=== PATIENT | female | born 1985 | race Two or more races ===

== ENCOUNTER 2023-08-25 20:12 | Emergency (ER) | payer MEDICAID, OTHER ==
[~2023-08-25] VITALS: Ht 175.3 cm; Wt 136.2 kg
[2023-08-25] MEDS ORDERED: FAMO20TA10 PO (22:24)
[2023-08-25] MEDS ORDERED: PRED20TA2 PO (22:24)
[2023-08-25] MEDS ORDERED: HYDR25CA PO (22:24)
[2023-08-25] MEDS: diphenhdrAMINE HCL 50 MG/1 ML VL IM ONE (23:37)
[2023-08-25] MEDS: DexAMETHasone SOD PHOS 10MG/1ML VIAL INJ IM ONE (23:38)
[2023-08-25] MEDS: FAMOTIDINE 20 MG TAB PO ONE (23:39)
[2023-08-26] MEDS: diphenhdrAMINE HCL 50 MG/1 ML VL IM ONE (00:59)
[2023-08-26] MEDS: methylPREDNISolone SOD SUCC 125 MG/2 ML VL IM ONE (01:00)
[2023-08-26 02:15] VITALS: BP 112/78; PULSE 78; RESP 18; TEMP 98; O2SAT 99
== END 2023-08-26 02:15 | disposition home or self-care (01) ==
LOC: ER 20:12
DX: L50.0 Allergic urticaria (principal)
CPT/HCPCS: 96372; 99284; J1100; J1200; J2919

== ENCOUNTER 2024-03-04 07:31 | Day surgery (SDC) | payer MEDICAID ==
[2024-03-04] VITALS (13 sets, daily range): BP systolic 107–188; BP diastolic 72–113; PULSE 60–77; RESP 12–21; O2SAT 100
[~2024-03-04] VITALS: Ht 177.8 cm; Wt 136.1 kg
[~2024-03-04 07:31] MED LIST: ASPI-543 PO; DICY20TA PO; HYDR25CA PO
[2024-03-04] MEDS ORDERED: MIDAZOLAM HCL 2MG/2ML 2ml VIAL (1mg/ml) IV ONE (08:30)
[2024-03-04] MEDS ORDERED: ONDANSETRON HCL 4 MG/2 ML VIAL IV ONE (08:30)
[2024-03-04] MEDS ORDERED: LIDOCAINE VISCOUS 2% 15ML UD PO ONE (08:30)
[2024-03-04] MEDS ORDERED: fentaNYL CITRATE 100 MCG/2 ML VL IV ONE (08:30)
[2024-03-04] MEDS ORDERED: ANGIOMAX 250 MG VIAL IV ONE (09:52)
[2024-03-04] MEDS ORDERED: LIDOCAINE 2%HCL (LOCAL ANESTH.) INJ 20ML MDV ONE ×2 (09:53→10:44)
[2024-03-04] MEDS ORDERED: VERAPAMIL 2.5MG/ML INJ 2ML VIAL IV ONE (09:53)
[2024-03-04] MEDS ORDERED: HEPARIN SODIUM (PORCINE) 5000 UNITS/ML 1ML VIAL ONE (09:53)
[2024-03-04] MEDS ORDERED: fentaNYL CITRATE 100 MCG/2 ML VL ONE (09:53)
[2024-03-04] MEDS ORDERED: MIDAZOLAM HCL 2MG/2ML 2ml VIAL (1mg/ml) ONE (09:53)
[2024-03-04] MEDS ORDERED: SODIUM CHL 0.9% 0 ML ONE (09:53)
[2024-03-04] MEDS ORDERED: IODIXANOL 320MG/ML 100ML BTL IV ONE (09:56)
[2024-03-04] MEDS ORDERED: VANCOMYCIN 1GM/200ML PREMIX 200 ML IV ONE (10:56)
--- NOTE | 2024-03-04 12:09 | DVHOP ---
DATE OF SURGERY: 03/04/2024 PROCEDURES PERFORMED: The patient underwent a right and left heart catheterization, bilateral cine coronary angiography, left ventriculography. INDICATION: Tricuspid stenosis. DESCRIPTION OF PROCEDURE: Prior local anesthesia with 2% lidocaine to the right groin and full informed consent obtained, the patient was prepped and draped in the usual fashion. With ultrasound guidance, we placed a 6-Singaporean sheath into the femoral vein and a Mico-Leonid catheter was advanced into the right atrium, right ventricle, pulmonary artery capillary wedge pressure positions. Cardiac outputs were obtained in thermodilution technique in triplicate. We obtained pullback pressures to calculate tricuspid valve area as well. Through the radial artery under ultrasound and fluoroscopic guidance, we gained access to the radial artery. We used a Jose Enrique catheter for evaluation of both right and left coronary ostium and ventriculography without complications. HEMODYNAMICS: Right atrial pressure was approximately 18/16. Right ventricular pressure was 23/6, pulmonary artery pressure was 20/13. Capillary wedge pressure was 9. LV pressure was 136/15, aortic pressure was 139/80. There was a 6 mm gradient across the tricuspid valve with a cardiac output of 4.6 liters per minute. This yields a tricuspid valve area of 1.19 cm2. CORONARY ANATOMY: * The RCA is a large vessel. It is normal in its proximal, mid and distal segments. PDA and posterolateral branches are normal. * Left main is large and normal. * Left anterior descending is a large vessel. It is normal in its proximal, mid and distal segments. * Diagonals and septals are normal. * Circumflex is a large vessel with 2 marginals free of significant disease. Ventriculography in the [place] projection shows an EF of 60%. IMPRESSION: Normal left ventricular end diastolic pressure at rest, normal ejection fraction, normal coronary arteries. Mildly diminished cardiac output. Tricuspid stenosis with a calculated valve area of 1.19 cm2 consistent with significant tricuspid stenosis. RECOMMENDATIONS: We will refer patient for possible tricuspid valve replacement. MD MARINA Burgos/HEMALATHA TID: [id number] RECEIPT: [id number]
--- NOTE | 2024-03-04 12:30 | DVHOP ---
DATE OF SURGERY: 03/04/2024 PROCEDURE PERFORMED: Transesophageal echocardiogram. INDICATION: Tricuspid stenosis. DESCRIPTION OF PROCEDURE: Prior full informed consent obtained, the patient was prepped and draped in the usual fashion and a transesophageal probe was passed without difficulty into the esophagus after conscious sedation given. Standard views obtained. Transgastric views were also obtained. Bubble study was not performed. The patient tolerated the procedure well. No complications. FINDINGS: There was mild left atrial enlargement and right atrial enlargement. Mild concentric LVH. The pulmonic, mitral and aortic appeared to be structurally normal. There is a prosthetic tricuspid valve with diminished excursion of leaflets. Mild calcification of some of the bioprosthetic leaflets as well. Left ventricular systolic function is preserved at 60% with normal RV function. There is mild to moderate tricuspid regurgitation. There is across the valve. Tricuspid valve in diastole suggesting tricuspid valve stenosis; however, not quantified echocardiographically. No pericardial effusion, masses or vegetations. Transgastric views were normal. There was no evidence for intraatrial or intraventricular septal defects. There were no other abnormalities noted within the tricuspid valve. The patient tolerated the procedure well. There were no complications. MD MARINA Burgos/HEMALATHA/ANGIE TID: [id number] RECEIPT: [id number]
== END 2024-03-04 14:25 | disposition home or self-care (01) ==
LOC: CATH 07:31
PROVIDERS: ATTEND Internal Medicine
DX: I07.2 Rheumatic tricuspid stenosis and insufficiency (principal); I34.0 Nonrheumatic mitral (valve) insufficiency
CPT/HCPCS: 81025; 93312; 93460; C1769; C1887; C1894; J1644; J2250; J2405; J3010; J3370; Q9967; 99152; 99153

== ENCOUNTER 2025-02-23 23:39 | Inpatient (IN) | payer MEDICAID ==
[~2025-02-23] VITALS: Ht 175.3 cm; Wt 143.6 kg
--- NOTE | 2025-02-24 00:59 | DVH ---
Right lower extremity venous duplex Clinical History: leg pain Comparison: VAS VENOUS UPPER EXTREM LEFT on DOS: 06/08/24, CV VENOUS DOPPLER UP EXT LT on DOS: 09/03/23 Technique: Duplex Doppler evaluation of the deep venous system of the right lower extremity from the common femoral vein to the popliteal vein including color Doppler and spectral/pulsed waveform analysis was performed. Findings: The common femoral vein demonstrates appropriate compressibility and waveform variability. There is compressibility/patency of the great saphenous vein at the proximal thigh. The femoral vein demonstrates appropriate compressibility and waveform variability. The deep femoral vein demonstrates appropriate compressibility and waveform variability. The popliteal vein demonstrates appropriate compressibility and waveform variability. There is normal compressibility at the tibioperoneal trunk. Impression: 1. No right femoropopliteal venous thrombosis.
[2025-02-24] MEDS: MORPHINE SULFATE 4 MG/ML SYR/VIAL IM ONE (01:10)
--- NOTE | 2025-02-24 01:19 | ED.PDOC ---
Musculoskeletal HPI Comments Patient complaining of right leg/thigh pain that has been going on for two weeks. States over the last two days pain has been getting much more worse. Says she was recently seen at [facility] and diagnosed with possible infection in her pelvic region. States she has been finishing antibiotics, has two days left. States she has seen no significant improvement in her leg pain. Denies any trauma to the area. He states the pain is so intense it is hard for her to walk. Patient also reports history of mitral valve replacement. She was on blood thinners but she recently stopped for approximately three weeks ago. Chief Complaint: Lower Extremity Time Seen by MD: 00:02 Reviewed Notes: Nurses Notes Allergies: Coded Allergies: NO KNOWN ALLERGIES (Unverified , 08/25/23) Home Meds Active Scripts Hydroxyzine Pamoate (Vistaril) 25 Mg Cap, 1 CAP PO Q8HPRN PRN, #20 CAP 1 Refill Needed for itching no driving Prov:MARLOGELYEmelina Q FEED INSPECTION SUPERVISOR 08/25/23 Reported Medications Aspirin (Aspir-Low) 81 Mg Tab, 81 MG PO DAILY for STOP ON 02/29/24, MG 02/28/24 Dicyclomine Hcl (Dicyclomine Hcl) 20 Mg Tab, 20 MG PO TIDBM for diverticulitis, MG 02/28/24 Information Source: Patient Mode of Arrival: EMS Past Medical History PAST MEDICAL HISTORY: Denies Surgical History: Denies all surgeries SMALL BUSINESS BANKING OFFICER History: No Pertinent SMALL BUSINESS BANKING OFFICER History Constitutional: denies: chills, diaphoresis, fatigue, fever, malaise, sweats, weakness, others EENTM: denies: blurred vision, double vision, ear bleeding, ear discharge, ear drainage, ear pain, ear ringing, eye pain, eye redness, hearing loss, mouth pain, mouth swelling, nasal discharge, nose bleeding, nose congestion, nose pain, photophobia, tearing, throat pain, throat swelling, voice changes, others Respiratory: denies: cough, hemoptysis, orthopnea, SOB at rest, shortness of breath, SOB with excertion, stridor, wheezing, others Cardiovascular: denies: chest pain, dizzy spells, diaphoresis, Dyspnea on exertion, edema, irregular heart beat, left arm pain, lightheadedness, palpitations, PND, syncope, others Gastrointestinal: denies: abdomen distended, abdominal pain, blood streaked bowels, constipated, diarrhea, dysphagia, difficulty swallowing, hematemesis, melena, nausea, poor appetite, poor fluid intake, rectal bleeding, rectal pain, vomiting, others Genitourinary: denies: abnormal vagina bleeding, burning, dyspareunia, dysuria, flank pain, frequency, hematuria, incontinence, pain, , vagina discharge, urgency, others Neurological: denies: dizziness, fainting, headache, left sided numbness, left sided weakness, numbness, paresthesia, pre-existing deficit, right sided numbness, right sided weakness, seizure, speech problems, tingling, tremors, weakness, others Musculoskeletal: reports: muscle pain, muscle stiffness; denies: back pain, gout, joint pain, joint swelling, neck pain, others Integumetry: denies: bruises, change in color, change in hair/nails, dryness, laceration, lesions, lumps, rash, wounds, others Physical Exam General Appearance: No Apparent Distress, Normal HEENT: Normal ENT Inspection, Pharynx Normal, TMs Normal Neck: Full Range of Motion, Non-Tender, Normal, Normal Inspection Respiratory: Chest Non-Tender, Lungs Clear, No Accessory Muscle Use, No Respiratory Distress, Normal Breath Sounds Cardiovascular: No Edema, No JVD, No Murmur, No Gallop, Normal Peripheral Pulses, Regular Rate/Rhythm Breast Exam: Deferred Gastrointestinal: No Organomegaly, Non Tender, No Pulsatile Mass, Normal Bowel Sounds, Soft Genitalia: Deferred Pelvic: Deferred Rectal: Deferred Extremities: No calf tenderness, Normal capillary refill, No pedal edema, Tender (Tender to palpation over her lateral right thigh. No obvious swelling no redness. Patient unwilling to bear weight. Distal circulation and motor s kills intact.) Musculoskeletal : Apperance: Normal Neurologic: Alert, roving or yarn color checker II-XII nml as Tested, No Motor Deficits, Normal Affect, Normal Mood, No Sensory Deficits Cerebellar Function: Normal Reflexes: Normal Skin: Dry, Normal Color, Warm Lymphatic: No Adenopathy Was a procedure done? Was a procedure done?: No Differential Diagnosis EXT Differential Diagnosis: Deep Vein Thrombosis, Fracture, Sprain, Dislocation X-Ray, Labs, Meds, VS Vital Signs Date Time Temp Pulse Resp B/P (MAP) Pulse Ox O2 Delivery O2 Flow Rate FiO2 02/23/25 23:54 97.9 61 19 130/84 96 97.9 X-Ray, Labs, Meds, VS Comment Imaging was reviewed by this provider, there is no obvious pathological or acute disease process. Pending radiology review Labs were reviewed by this provider, no abnormalities Vital signs reviewed by this provider, clinically stable Time of 1ST Reevaluation: 01:19 Reevaluation 1ST: Unchanged Patient Education/Counseling: Diagnosis, Treatment, Need For Follow Up (Follow up with PCP next available appointment. Return emergency department if symptoms worsen.) Family Education/Counseling: Diagnosis Departure 1 Departure Time of Disposition: 01:18 Impression: Primary Impression: Right leg pain Disposition: HOME / SELF CARE / HOMELESS Condition: Stable Discharged With: Self Critical Care Note Critical Care Time?: No Stability Stability form required: No Heart Score Heart Score: Heart Score Response (Comments) Value History N/A 0 EKG N/A 0 Age N/A 0 Risk Factors N/A 0 Troponin N/A 0 Total 0 MAGALI MONCADA RECREATION PROFESSOR Feb 24, 2025 01:19
[2025-02-24 02:05] VITALS: PULSE 60; RESP 18; O2SAT 96
[2025-02-24] MEDS: methylPREDNISolone SOD SUCC 125 MG/2 ML VL IM ONE (02:40)
[2025-02-24] MEDS: KETOROLAC TROMETH 30 MG/ML 1ML VIAL IM ONE (02:40)
--- NOTE | 2025-02-24 05:07 | ED.PDOC ---
Departure 1 Departure Time of Disposition: 01:18 Impression: Primary Impression: Right leg pain Additional Impressions: Intractable pain Inability to walk Disposition: ADMITTED INPATIENT Condition: Stable Comments Patient reporting continued severe pain right lower extremity when attempting to stand up and walk prior to discharge. She is unable to ambulate due to pain. Patient admitted to hospitalist service for further treatment, evaluation and monitoring. TK SEGAL MD Feb 24, 2025 05:07
[2025-02-24 05:42] LABS: Hematocrit 37.6 % (36.0-46.0); Hemoglobin 12.3 g/dL (12.2-16.2); Mean Corpuscular Hemoglobin 24.9 pg (28.0-32.0); Mean Corpuscular Volume 76.0 fL (80.0-100.0); Nucleated Red Blood Cells % 0.0 %
[2025-02-24 05:50] LABS: Chloride 107 mmol/L (98-107); Potassium 4.0 mmol/L (3.5-5.1); Sodium 141 mmol/L (136-145)
[2025-02-24 05:51] LABS: Anion Gap 11 (5-15); Calcium 9.5 mg/dL (8.7-10.4); Carbon Dioxide 23 mmol/L (20-31)
[2025-02-24 05:56] LABS: BUN/Creatinine Ratio 7.5 (10.0-20.0)
[2025-02-24 05:57] LABS: Blood Urea Nitrogen 8 mg/dL (9-23); Glucose 117 mg/dL (74-106)
--- NOTE | 2025-02-24 06:01 | DVH ---
EXAM: CT LS SPINE WO CONTRAST HISTORY: Left lower extremity pain, weakness, numbness s/p back inj COMPARISON: CT L-SPINE on DOS: 11/15/24 CTDIvol 38.93 mGy, DLP 1430.21 mGy*cm. TECHNIQUE: Multiple axial CT images of the spine were obtained using bone algorithm. Axial and coronal reformatting was done. Bone and soft tissue windows were reviewed. FINDINGS: No acute fracture or subluxation. Prominent endplate degenerative changes and Schmorl's nodes at L4-L5. Suggestion of moderate to severe canal stenosis at L4- L5 and L5-S1. Colonic diverticulosis. IMPRESSION: No definite CT evidence of acute fracture or dislocation of the bony lumbar spine. Prominent endplate degenerative changes and Schmorl's nodes at L4-L5. Suggestion of moderate to severe canal stenosis at L4-L5 and L5-S1.
[2025-02-24] MEDS: ACETAMINOPHEN 500 MG TAB or CAP PO ONE (06:04)
[2025-02-24] MEDS: MORPHINE SULFATE 4 MG/ML SYR/VIAL ONE (06:04)
[2025-02-24] MEDS: GABAPENTIN 300 MG CAP PO ONE (06:04)
[2025-02-24] MEDS: MORPHINE SULFATE INJ 2 MG/ml SYRG IV ONE (06:08)
[2025-02-24 08:00] VITALS: PULSE 60; RESP 14; O2SAT 98
[2025-02-24] MEDS ORDERED: ONDANSETRON HCL 4 MG/2 ML VIAL IV PRN (08:15)
[2025-02-24] MEDS ORDERED: ACETAMINOPHEN 325 MG TAB PO PRN (08:15)
[2025-02-24] MEDS ORDERED: DOCUSATE SOD 100 MG CAP PO PRN (08:15)
[2025-02-24] MEDS ORDERED: QUET200T45 PO (08:20)
[2025-02-24] MEDS ORDERED: HYDR50TA69 PO (08:20)
--- NOTE | 2025-02-24 09:37 | DVH ---
INDICATION: SOB TECHNIQUE: Frontal view of the chest. COMPARISON: CR CHEST 2 VIEW on DOS: 02/19/24, XR CHEST 1 VIEW on DOS: 09/03/23 FINDINGS: Left-sided pacemaker.. The heart and mediastinal contours are grossly unremarkable. There is no evidence of pleural disease. The lungs are clear. The bony structures of the chest are intact without fracture. IMPRESSION: Mild CHF.
--- NOTE | 2025-02-24 09:47 | DVHHP2 ---
History of Present Illness Reason for Visit: Right leg pain History of Present Illness Luz Deras is a 39-year-old female with past medical history of sepsis, anxiety, depression, tricuspid valve replacement, and pacemaker, who came to the hospital for right leg pain. Patient states her problems started about 2 weeks ago with vaginal pain. She went to [facility] and was told she has a vaginal infection. She was sent home with 3 PO antibiotics. She states she took them for about 1 week then stopped because they weren't helping. She states the pain has been progressing and worsening. The pain now starts at her vagina and shoots down her right leg. Yesterday she fell twice due to her leg giving out form pain, this prompted her to come to the hospital. Cardiovascular: valve insufficiency (Tricuspid valve stenosis), Other (tricuspid valve replacement, and pacemaker) Psych: Anxiety, Depression Smoke: No ALCOHOL: heavy (nightly) Drugs: None Lives: with Family Domestic Violence: Neg Review of Systems Constitutional: Yes: Weakness; No: Fever, Chills, Sweats, Malaise, Other Eyes: No: Pain, Vision change, Conjunctivae inflammation, Eyelid inflammation, Other, Redness ENT: No: Ear pain, Ear discharge, Nose pain, Nose discharge, Nose congestion, Mouth pain, Mouth swelling, Throat pain, Throat swelling, Other Respiratory: No: Cough, Dry, Shortness of breath, SOB with excertion, Wheezing, Hemoptysis, Pleuritic Pain, Sputum, Wheezing, Other Cardiovascular: No: Chest Pain, Palpitations, Orthopnea, Paroxysmal Noc. Dyspnea, Edema, Lt Headedness, Other Gastrointestinal: No: Nausea, Vomiting, Abdominal Pain, Diarrhea, Constipation, Melena, Hematochezia, Other Genitourinary: No Dysuria, No Frequency, No Incontinence, No Hematuria, No Retention, No Other Musculoskeletal: leg pain (right leg pain and weakness); No: other, neck pain, shoulder pain, arm pain, back pain, hand pain, foot pain Skin: No: Rash, Lesions, Jaundice, Bruising, Other Neurological: No: Weakness, Numbness, Incoordination, Change in speech, Confusion, Seizures, Other Allergies: Coded Allergies: NO KNOWN ALLERGIES (Unverified , 02/24/25) Medications Current Medications Medications Dose Ordered Sig/Estevan Route Start Time Stop Time Status Last Admin Dose Admin Acetaminophen/ Hydrocodone Bitart 1 tab Q4HP PRN PO 02/24/25 08:15 UNV Ondansetron HCl 4 mg Q4HP PRN IV 02/24/25 08:15 UNV Docusate Sodium 100 mg BIDPRN PRN PO 02/24/25 08:15 UNV Enoxaparin Sodium 40 mg DAILY SC 02/24/25 10:00 UNV Acetaminophen 650 mg Q6HP PRN PO 02/24/25 08:15 UNV Exam Vital Signs Vital Signs Date Time Temp Pulse Resp B/P (MAP) Pulse Ox O2 Delivery O2 Flow Rate FiO2 02/24/25 06:43 60 14 125/67 (86) 96 02/24/25 06:04 98.4 02/24/25 02:05 Room Air* 0 21 General Appearance: Alert, Oriented X3, Cooperative, mild distress HEENT: Atraumatic, PERRLA, Mucous membr. moist/pink Respiratory: Clear to auscultation, Normal air movement Cardiovascular: Normal S1, Normal S2, No murmurs, Other (Paced) Abdominal: Normal bowel sounds, Soft, No tenderness, No hepatospenomegaly Extremities: No clubbing, No cyanosis, No edema, Normal pulses, No tenderness/swelling Skin: No rashes, No breakdown, No significant lesion Neuro: Normal speech, Other (right leg weakness due to pain, difficulty ambulating) Psych/Mental Status: Mental status NL, Mood NL Labs/Xrays Labs Test 02/24/25 05:16 Range/Units White Blood Count 7.3 4.4-10.8 10^3/uL Red Blood Count 4.95 4.0-5.20 10^6/uL Hemoglobin 12.3 12.2-16.2 g/dL Hematocrit 37.6 36.0-46.0 % Mean Corpuscular Volume 76.0 L 80.0-100.0 fL Mean Corpuscular Hemoglobin 24.9 L 28.0-32.0 pg Mean Corpuscular Hemoglobin Concent 32.8 32.0-36.0 g/dL Red Cell Distribution Width 18.4 H 11.8-14.3 % Platelet Count 219 140-450 10^3/uL Mean Platelet Volume 8.7 6.9-10.8 fL Neutrophils (%) (Auto) 68.1 37.0-80.0 % Lymphocytes (%) (Auto) 28.1 10.0-50.0 % Monocytes (%) (Auto) 2.9 0.0-12.0 % Eosinophils (%) (Auto) 0.6 0.0-7.0 % Basophils (%) (Auto) 0.3 0.0-2.0 % Neutrophils # (Auto) 5.0 1.6-8.6 10 ^3/uL Lymphocytes # (Auto) 2.1 0.4-5.4 10 ^3/uL Monocytes # (Auto) 0.2 0-1.3 10 ^3/uL Eosinophils # (Auto) 0 0-0.8 10 ^3/uL Basophils # (Auto) 0 0-0.2 10 ^3/uL Nucleated Red Blood Cells 0.0 % Sodium Level 141 136-145 mmol/L Potassium Level 4.0 3.5-5.1 mmol/L Chloride Level 107 98-107 mmol/L Carbon Dioxide Level 23 20-31 mmol/L Anion Gap 11 5-15 Blood Urea Nitrogen 8 L 9-23 mg/dL Creatinine 1.06 H 0.550-1.02 mg/dL Glomerular Filtration Rate Calc 68 >90 mL/min BUN/Creatinine Ratio 7.5 L 10.0-20.0 Serum Glucose 117 H 74-106 mg/dL Lactic Acid Level 1.6 0.4-2.0 mmol/L Calcium Level 9.5 8.7-10.4 mg/dL C-Reactive Protein High Sensitivity 0.74 <1.0 mg/dL Right lower extremity venous duplex Findings: The common femoral vein demonstrates appropriate compressibility and waveform variability. There is compressibility/patency of the great saphenous vein at the proximal thigh. The femoral vein demonstrates appropriate compressibility and waveform variability. The deep femoral vein demonstrates appropriate compressibility and waveform variability. The popliteal vein demonstrates appropriate compressibility and waveform variability. There is normal compressibility at the tibioperoneal trunk. Impression: 1. No right femoropopliteal venous thrombosis. EXAM: CT LS SPINE WO CONTRAST FINDINGS: No acute fracture or subluxation. Prominent endplate degenerative changes and Schmorl's nodes at L4-L5. Suggestion of moderate to severe canal stenosis at L4- L5 and L5-S1. Colonic diverticulosis. IMPRESSION: No definite CT evidence of acute fracture or dislocation of the bony lumbar spine. Prominent endplate degenerative changes and Schmorl's nodes at L4-L5. Suggestion of moderate to severe canal stenosis at L4-L5 and L5-S1. SEPSIS Sepsis Screen Date sepsis recognized/suspect: Feb 23, 2025 Time Sepsis recognized/suspect: 2346 Recent Procedure: No On Antibiotic Therapy: Yes Respiratory Rate >20: No Heart Rate >90: No Temp<36 C (96.8 F) or >38.3 C: No SBP <90 or MAP <65 mmHG: No New Acute Mental Status Change: No Is the patient on CPAP, BIPAP,: No Physician Orders Ls Spine Wo Contrast (02/24/25 05:03) Saline Lock (02/24/25 05:03) Admit (02/24/25 08:04) Code Status (02/24/25 08:04) Hydrocodone-Acet 5/325mg Tab ([place] 5/32 (02/24/25 08:15) Ondansetron Hcl (Zofran) (02/24/25 08:15) Docusate Sodium Capsule (Colace Capsule) (02/24/25 08:15) Enoxaparin Sodium (Lovenox) (02/24/25 10:00) Complete Blood Count (02/25/25 04:00) Comprehensive Metabolic Panel (02/25/25 04:00) Cardiac Diet-2gna,Lofat,Lochol (02/24/25 Breakfast) Condition: Serious (02/24/25 08:04) Acetaminophen Tablet (Tylenol Tablet) (02/24/25 08:15) Metronidazole Ivpb Flagyl (02/24/25 14:00) Metronidazole Ivpb Flagyl (02/24/25 08:30) Consultdr. Rm Herrmann(Spine) (02/24/25 08:16) Aspirin Enteric Coated Tablet (Ecotrin E (02/24/25 10:00) (Nf) Dicyclomine Hcl (02/24/25 10:00) Vital Signs Date Time Temp Pulse Resp B/P (MAP) Pulse Ox O2 Delivery O2 Flow Rate FiO2 02/24/25 06:43 60 14 125/67 (86) 96 02/24/25 06:08 60 15 129/60 02/24/25 06:04 98.4 02/24/25 04:00 60 20 129/60 (83) 98 02/24/25 02:05 60 18 96 Room Air* 0 21 02/24/25 02:04 98.3 60 20 127/74 (91) 96 98.3 02/24/25 01:10 60 19 127/74 Laboratory Tests Test 02/24/25 05:16 Lactic Acid Level 1.6 mmol/L (0.4-2.0) White Blood Count 7.3 10^3/uL (4.4-10.8) Medications Medications Dose Ordered Sig/Estevan Route Start Time Stop Time Status Last Admin Dose Admin Acetaminophen 1,000 mg ONCE ONCE PO 02/24/25 05:15 02/24/25 05:16 DC 02/24/25 06:04 1,000 MG Gabapentin 300 mg ONCE ONCE PO 02/24/25 05:15 02/24/25 05:16 LA 02/24/25 06:04 300 MG Ketorolac Tromethamine 30 mg ONCE ONCE IM 02/24/25 01:15 02/24/25 01:16 LA 02/24/25 02:40 30 MG Methylprednisolone Sodium Succinate 125 mg ONCE ONCE IM 02/24/25 01:15 02/24/25 01:16 DC 02/24/25 02:40 125 MG Morphine Sulfate 2 mg ONCE ONCE IV 02/24/25 05:15 02/24/25 05:16 LA 02/24/25 06:08 2 MG Morphine Sulfate 4 mg ONCE ONCE IM 02/24/25 00:15 02/24/25 00:16 LA 02/24/25 01:10 4 MG Assessment/Plan Assessment/Plan Assessment: Intractable pain, Radiculopathy, Schmorl's Nodes, L4-L5 & L5-S1 moderate/severe canal stenosis, Tricuspid valve stenosis, Anxiety, Depression, Plan: Admit to Med-Surg, Spine surgery consult, IV steroids, IV antibiotics, IV hydration, Pain management, Home medications reconciled, Plan discussed with: Patient My Orders Orders - JORGE HOOPERP Procedure Category Date Status Time Admit ADMIT 02/24/25 Transmitted 08:04 Code Status CODE 02/24/25 Transmitted 08:04 Hydrocodone-Acet PHA 02/24/25 Logged 5/325mg Tab ([place] 08:15 Ondansetron Hcl PHA 02/24/25 Logged (Zofran) 08:15 Docusate Sodium PHA 02/24/25 Logged Capsule (Colace 08:15 Enoxaparin Sodium PHA 02/24/25 Logged (Lovenox) 10:00 Complete Blood Count LAB 02/25/25 Verified 04:00 Comprehensive LAB 02/25/25 Verified Metabolic Panel 04:00 Cardiac DIET 02/24/25 Transmitted Diet-2gna,Lofat,Lochol Breakfast Condition: Serious WALLY 02/24/25 In Process 08:04 Acetaminophen Tablet PHA 02/24/25 Logged (Tylenol Tablet) 08:15 Metronidazole Ivpb PHA 02/24/25 Verified Flagyl 14:00 Metronidazole Ivpb PHA 02/24/25 Verified Flagyl 08:30 Consultdr. Rm CONS 02/24/25 Verified [place](Spine) 08:16 Aspirin Enteric PHA 02/24/25 Verified Coated Tablet 10:00 (Nf) Dicyclomine Hcl PHA 02/24/25 Verified 10:00 Date of Service: Feb 24, 2025 Billing Provider: JORGE HOOPER Common Visit Codes: [id number] INP/OBS CARE (MOD) JORGE HOOPER Feb 24, 2025 09:47
[2025-02-24] MEDS: ENOXAPARIN SOD 40 MG/0.4 ML SYRINGE SC SCH (11:36)
[2025-02-24] MEDS: methylPREDNISolone SOD SUCC 40 MG/ML VL IV SCH (11:37)
[2025-02-24] MEDS: ASPirin-EC 81 mg tab PO SCH (11:47)
[2025-02-24] MEDS: MORPHINE SULFATE 4 MG/ML SYR/VIAL IV PRN (16:16)
[2025-02-24 17:07] VITALS: BP 166/93; PULSE 71; RESP 18; TEMP 97.7; O2SAT 99
[2025-02-24 17:08] VITALS: BP 166/93; PULSE 71; RESP 18; TEMP 97.7; O2SAT 99
[2025-02-24] MEDS ORDERED: LACT10SO59 PO (17:37)
[2025-02-24] MEDS ORDERED: CARI1CAP2 PO (17:37)
[2025-02-24] MEDS: HYDROcodone-ACET 5/325MG TAB PO PRN (18:11)
[2025-02-24 21:00] VITALS: BP 132/86; PULSE 63; RESP 17; TEMP 97.8; O2SAT 95
[2025-02-24] MEDS: SODIUM CHLORIDE 0.9% 1,000 ML IV ONE (21:00)
[2025-02-25 01:00] VITALS: BP 134/79; PULSE 59; RESP 18; TEMP 97.9; O2SAT 96
[2025-02-25 05:00] VITALS: BP 125/84; PULSE 66; RESP 17; TEMP 97.7; O2SAT 99
[2025-02-25 05:53] LABS: Hematocrit 36.0 % (36.0-46.0); Hemoglobin 11.6 g/dL (12.2-16.2); Mean Corpuscular Hemoglobin 24.5 pg (28.0-32.0); Mean Corpuscular Volume 75.6 fL (80.0-100.0); Nucleated Red Blood Cells % 0.0 %
[2025-02-25 06:03] LABS: Alanine Aminotransferase 24 U/L (7-40); Albumin 4.3 g/dL (3.2-4.8); Alkaline Phosphatase 72 U/L (46-116); Anion Gap 11 (5-15); BUN/Creatinine Ratio 22.7 (10.0-20.0); Blood Urea Nitrogen 17 mg/dL (9-23); Calcium 9.2 mg/dL (8.7-10.4); Carbon Dioxide 21 mmol/L (20-31); Potassium 4.3 mmol/L (3.5-5.1); Sodium 140 mmol/L (136-145); Total Protein 6.9 g/dL (5.7-8.2)
[2025-02-25 06:04] LABS: Bilirubin, Total 0.7 mg/dL (0.2-1.0)
[2025-02-25 06:11] LABS: Chloride 108 mmol/L (98-107); Glucose 134 mg/dL (74-106)
[2025-02-25 09:00] VITALS: BP 125/75; PULSE 61; RESP 20; TEMP 98; O2SAT 98
[2025-02-25] MEDS: hydrOXYzine 25 MG TAB or CAP PO SCH (10:31)
[2025-02-25] MEDS: GABAPENTIN 300 MG CAP PO SCH (11:54)
[2025-02-25 13:00] VITALS: BP 118/76; PULSE 61; RESP 20; TEMP 98; O2SAT 96
--- NOTE | 2025-02-25 13:18 | DVHPN2 ---
Subjective Still having severe pain Reviewed: H&P Changes from previous H/P or p: No Changes Eyes: No Pain, No Vision change, No Conjunctivae inflammation, No Eyelid inflammation, No Other, No Redness ENT: No Ear pain, No Ear discharge, No Nose pain, No Nose discharge, No Nose congestion, No Mouth pain, No Mouth swelling, No Throat pain, No Throat swelling, No Other Cardiovascular: No Chest Pain, No Palpitations, No Orthopnea, No Paroxysmal Noc. Dyspnea, No Edema, No Lt Headedness, No Other Respiratory: No Cough, No Dry, No Shortness of breath, No SOB with excertion, No Wheezing, No Hemoptysis, No Pleuritic Pain, No Sputum, No Other Gastrointestinal: No Nausea, No Vomiting, No Abdominal Pain, No Diarrhea, No Constipation, No Melena, No Hematochezia, No Other Genitourinary: No Dysuria, No Frequency, No Incontinence, No Hematuria, No Retention, No Other Musculoskeletal: No other, No neck pain, No shoulder pain, No arm pain, No back pain, No hand pain; leg pain (right leg pain and weakness); No foot pain Skin: No Rash, No Lesions, No Jaundice, No Bruising, No Other Objective Vitals Vital Signs Date Time Temp Pulse Resp B/P (MAP) Pulse Ox O2 Delivery O2 Flow Rate FiO2 02/25/25 11:55 62 18 127/70 02/25/25 09:00 98.0 98 98.0 02/25/25 07:54 Room Air* 0 21 Intake/Output Intake and Output 02/25/25 07:00 Intake Total 1050 ml Output Total 1100 ml Balance -50 ml Intake Oral 950 ml IV Total 100 ml Output Urine Total 1100 ml General Appearance: Alert, Oriented X3 HEENT: Atraumatic Lungs: Clear to auscultation Cardiovascular: Regular rate, Normal S1, Normal S2 Abdomen: Normal bowel sounds Medications Current Medications Medications Dose Ordered Sig/Estevan Route Start Time Stop Time Status Last Admin Dose Admin Acetaminophen/ Hydrocodone Bitart 1 tab Q4HP PRN PO 02/24/25 08:15 02/25/25 07:52 1 TAB Ondansetron HCl 4 mg Q4HP PRN IV 02/24/25 08:15 Docusate Sodium 100 mg BIDPRN PRN PO 02/24/25 08:15 Enoxaparin Sodium 40 mg DAILY SC 02/24/25 10:00 02/25/25 10:32 40 MG Acetaminophen 650 mg Q6HP PRN PO 02/24/25 08:15 Aspirin 81 mg DAILY PO 02/24/25 10:00 02/25/25 10:31 81 MG Patient Own Medication 20 mg TIDBM PO 02/24/25 10:00 Hydroxyzine Pamoate 50 mg DAILY PO 02/25/25 10:00 02/25/25 10:31 50 MG Quetiapine Fumarate 200 mg HS PO 02/24/25 22:00 Methylprednisolone Sodium Succinate 40 mg BID IV 02/24/25 10:00 02/25/25 10:32 40 MG Morphine Sulfate 2 mg Q4HPRN PRN IV 02/24/25 08:45 02/25/25 11:55 2 MG Metronidazole 100 ml @ 100 mls/hr Q8HR IV 02/24/25 22:00 02/25/25 06:10 100 MLS/HR Gabapentin 300 mg TID PO 02/25/25 11:00 02/25/25 11:54 300 MG Laboratory Results Laboratory Tests 02/25/25 04:55 Chemistry Test 02/25/25 04:55 Albumin 4.3 g/dL (3.2-4.8) Calcium Level 9.2 mg/dL (8.7-10.4) Total Protein 6.9 g/dL (5.7-8.2) LFT Test 02/25/25 04:55 Alanine Aminotransferase (ALT) 24 U/L (7-40) Alkaline Phosphatase 72 U/L (46-116) Aspartate Amino Transferase (AST) 23 U/L (13-40) Total Bilirubin 0.7 mg/dL (0.2-1.0) Assessment/Plan Assessment/Plan Intractable pain, Radiculopathy, Schmorl's Nodes, L4-L5 & L5-S1 moderate/severe canal stenosis, Tricuspid valve stenosis, Anxiety, Depression, Reviewed CT with no acute process Start gabapentin, lidocaine patch IV steroids PT eval Plan discussed with: Patient My Orders Orders - CORNEL REYNOLDS MD Procedure Category Date Status Time * Wound Consult CONS 02/25/25 Transmitted Gabapentin Capsule PHA 02/25/25 In Process (Neurontin Capsule) 11:00 * Electrical Troubleshooter CONS 02/25/25 Transmitted Consult Date of Service: Feb 25, 2025 Billing Provider: CORNEL REYNOLDS MD Common Visit Codes: [id number] INP/OBS CARE(HIGH) CORNEL REYNOLDS MD Feb 25, 2025 13:18
[2025-02-25 16:38] VITALS: BP 128/71; PULSE 66; RESP 20; TEMP 99.1; O2SAT 97
[2025-02-25 21:00] VITALS: BP 109/69; PULSE 65; RESP 19; TEMP 97.6; O2SAT 98
--- NOTE | 2025-02-25 23:41 | DVHINCON2 ---
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 Concurrently, she is having severe lo back pain radiating down both legs with parasthesias in both legs and patchy numbness in both legs no bowel or bladder incontinence no current f/c/night sweats Allergies and medications Allergies: Coded Allergies: NO KNOWN ALLERGIES (Unverified , 02/24/25) Home Meds Reported Medications Cariprazine HCl (Vraylar) 3 Mg Cap, 6 MG PO DAILY, CAP 02/24/25 Lactulose (Enulose) 10 Gm/15 Ml Maggie, 10 GM PO DAILYP PRN for FOR CONSTIPATION, ML 02/24/25 Quetiapine Fumerate (QUETIAPINE FUMARATE) 200 Mg Tab, 200 MG PO HS, TAB 02/24/25 Hydroxyzine Hcl (Hydroxyzine Hcl) 50 Mg Tab, 1 TAB PO DAILY 02/24/25 Aspirin (Aspir-Low) 81 Mg Tab, 81 MG PO DAILY for STOP ON 02/29/24, MG 02/28/24 Dicyclomine Hcl (Dicyclomine Hcl) 20 Mg Tab, 20 MG PO TIDBM for diverticulitis, MG 02/28/24 Discontinued Scripts Hydroxyzine Pamoate (Vistaril) 25 Mg Cap, 1 CAP PO Q8HPRN PRN, #20 CAP 1 Refill Needed for itching no driving Prov:[employer] 08/25/23 Review of systems Review of Systems: HEENT:Normal, CVS:Normal, RESPIRATORY:Normal, GI:Normal, :Normal, MSK:Abnormal, NEURO:Abnormal Examination Vital signs Vital Signs Date Time Temp Pulse Resp B/P (MAP) Pulse Ox O2 Delivery O2 Flow Rate FiO2 02/25/25 21:00 97.6 65 19 109/69 (82) 98 97.6 02/25/25 20:00 Room Air* 0 21 Medications Current Medications Medications (Trade) Dose Ordered Sig/Estevan Route PRN Reason Start Time Stop Time Status Last Admin Hydroxyzine Pamoate (Vistaril Oral) 50 mg DAILY PO 02/25/25 10:00 02/25/25 10:31 Gabapentin (Neurontin Capsule) 300 mg TID PO 02/25/25:00 02/25/25 21:[address] [address] Ph: [phone] DIAGNOSTIC IMAGING Diagnostic Imaging Report : [id number] Signed PATIENT: NELSON THOMAS ACCT: [id number] UNIT: [id number] : 1985 LOC: ER ROOM / BED: / AGE / SEX: 39 / F ADM STATUS: REG ER SERVICE 0505 ORDERING PHYSICIAN: TK SEGAL MD PROCEDURE(s): LS2CT - LS SPINE WO CONTRAST REASON: Left lower extremity pain, weakness, numbness s/p back inj ORDER NUMBER(s): [id number], ACCESSION NUMBER(s): [id number] EXAM: CT LS SPINE WO CONTRAST HISTORY: Left lower extremity pain, weakness, numbness s/p back inj COMPARISON: CT L-SPINE on DOS: 11/15/24 CTDIvol 38.93 mGy, DLP 1430.21 mGy*cm. TECHNIQUE: Multiple axial CT images of the spine were obtained using bone algorithm. Axial and coronal reformatting was done. Bone and soft tissue windows were reviewed. FINDINGS: No acute fracture or subluxation. Prominent endplate degenerative changes and Schmorl's nodes at L4-L5. Suggestion of moderate to severe canal stenosis at L4- L5 and L5-S1. Colonic diverticulosis. IMPRESSION: No definite CT evidence of acute fracture or dislocation of the bony lumbar spine. Prominent endplate degenerative changes and Schmorl's nodes at L4-L5. Suggestion of moderate to severe canal stenosis at L4-L5 and L5-S1. ATED BY: TROY ASH MD DICTATED DATE/TIME: 02/24/25558 SIGNED BY: TROY ASH MD SIGNED DATE/TIME: 02/24/25558 CC: Labs Test 02/25/25 04:55 02/24/25 19:24 02/24/25 05:16 Range/Units White Blood Count 14.0 #H 4.4-10.8 10^3/uL Red Blood Count 4.76 4.0-5.20 10^6/uL Hemoglobin 11.6 L 12.2-16.2 g/dL Hematocrit 36.0 36.0-46.0 % Mean Corpuscular Volume 75.6 L 80.0-100.0 fL Mean Corpuscular Hemoglobin 24.5 L 28.0-32.0 pg Mean Corpuscular Hemoglobin Concent 32.3 32.0-36.0 g/dL Red Cell Distribution Width 18.3 H 11.8-14.3 % Platelet Count 206 140-450 10^3/uL Mean Platelet Volume 9.7 6.9-10.8 fL Neutrophils (%) (Auto) 91.3 H 37.0-80.0 % Lymphocytes (%) (Auto) 6.6 L 10.0-50.0 % Monocytes (%) (Auto) 1.7 0.0-12.0 % Eosinophils (%) (Auto) 0.0 0.0-7.0 % Basophils (%) (Auto) 0.4 0.0-2.0 % Neutrophils # (Auto) 12.8 H 1.6-8.6 10 ^3/uL Lymphocytes # (Auto) 0.9 0.4-5.4 10 ^3/uL Monocytes # (Auto) 0.2 0-1.3 10 ^3/uL Eosinophils # (Auto) 0 0-0.8 10 ^3/uL Basophils # (Auto) 0 0-0.2 10 ^3/uL Nucleated Red Blood Cells 0.0 % Sodium Level 140 136-145 mmol/L Potassium Level 4.3 3.5-5.1 mmol/L Chloride Level 108 H 98-107 mmol/L Carbon Dioxide Level 21 20-31 mmol/L Anion Gap 11 5-15 Blood Urea Nitrogen 17 9-23 mg/dL Creatinine 0.75 0.550-1.02 mg/dL Glomerular Filtration Rate Calc 103 >90 mL/min BUN/Creatinine Ratio 22.7 H 10.0-20.0 Serum Glucose 134 H 74-106 mg/dL Calcium Level 9.2 8.7-10.4 mg/dL Total Bilirubin 0.7 0.2-1.0 mg/dL Aspartate Amino Transferase (AST) 23 13-40 U/L Alanine Aminotransferase (ALT) 24 7-40 U/L Alkaline Phosphatase 72 46-116 U/L Total Protein 6.9 5.7-8.2 g/dL Albumin 4.3 3.2-4.8 g/dL Lactic Acid Level 1.6 0.4-2.0 mmol/L C-Reactive Protein High Sensitivity 0.74 <1.0 mg/dL Examination: GENERAL:Normal, HEENT:Normal, NECK:Normal, LUNGS:Normal, CVS:Abnormal, ABDOMEN:Abnormal, MSK:Abnormal, SKIN:Normal, NEURO:Abnormal Problem List/Assessment/Plan Problems: (1) Intractable pain Assessment and Plan I would recommend getting an MRI lumbar spine evaluate for the etiology of the sciatica symptoms he is suffering from. Plan discussed with Plan discussed with: Patient CHRISTOPHER ALBA MD Feb 25, 2025 23:41
[2025-02-26 01:00] VITALS: BP 126/90; PULSE 60; RESP 20; TEMP 98.1; O2SAT 97
[2025-02-26 09:00] VITALS: BP 135/83; PULSE 60; RESP 16; TEMP 97.8; O2SAT 100
[2025-02-26 12:40] VITALS: BP 120/80; PULSE 60; RESP 19; TEMP 98.4; O2SAT 98
[2025-02-26 16:52] VITALS: BP 108/72; PULSE 100; RESP 16; TEMP 98.6; O2SAT 94
--- NOTE | 2025-02-26 18:31 | DVHPN2 ---
Subjective Still having severe pain Reviewed: H&P Changes from previous H/P or p: No Changes Eyes: No Pain, No Vision change, No Conjunctivae inflammation, No Eyelid inflammation, No Other, No Redness ENT: No Ear pain, No Ear discharge, No Nose pain, No Nose discharge, No Nose congestion, No Mouth pain, No Mouth swelling, No Throat pain, No Throat swelling, No Other Cardiovascular: No Chest Pain, No Palpitations, No Orthopnea, No Paroxysmal Noc. Dyspnea, No Edema, No Lt Headedness, No Other Respiratory: No Cough, No Dry, No Shortness of breath, No SOB with excertion, No Wheezing, No Hemoptysis, No Pleuritic Pain, No Sputum, No Other Gastrointestinal: No Nausea, No Vomiting, No Abdominal Pain, No Diarrhea, No Constipation, No Melena, No Hematochezia, No Other Genitourinary: No Dysuria, No Frequency, No Incontinence, No Hematuria, No Retention, No Other Musculoskeletal: No other, No neck pain, No shoulder pain, No arm pain, No back pain, No hand pain; leg pain (right leg pain and weakness); No foot pain Skin: No Rash, No Lesions, No Jaundice, No Bruising, No Other Objective Vitals Vital Signs Date Time Temp Pulse Resp B/P (MAP) Pulse Ox O2 Delivery O2 Flow Rate FiO2 02/26/25 16:52 98.6 100 16 108/72 (84) 94 98.6 02/26/25 08:00 Room Air* 0 21 Intake/Output Intake and Output 02/26/25 05:00 Intake Total 1450 ml Balance 1450 ml Intake Oral 1150 ml IV Total 300 ml # Voids 12 # Bowel Movements 1 General Appearance: Alert, Oriented X3 HEENT: Atraumatic Lungs: Clear to auscultation Cardiovascular: Regular rate, Normal S1, Normal S2 Abdomen: Normal bowel sounds Medications Current Medications Medications Dose Ordered Sig/Estevan Route Start Time Stop Time Status Last Admin Dose Admin Acetaminophen/ Hydrocodone Bitart 1 tab Q4HP PRN PO 02/24/25 08:15 02/26/25 16:50 1 TAB Ondansetron HCl 4 mg Q4HP PRN IV 02/24/25 08:15 Docusate Sodium 100 mg BIDPRN PRN PO 02/24/25 08:15 Enoxaparin Sodium 40 mg DAILY SC 02/24/25 10:00 02/26/25 09:05 40 MG Acetaminophen 650 mg Q6HP PRN PO 02/24/25 08:15 Aspirin 81 mg DAILY PO 02/24/25 10:00 02/26/25 08:58 81 MG Patient Own Medication 20 mg TIDBM PO 02/24/25 10:00 Hydroxyzine Pamoate 50 mg DAILY PO 02/25/25 10:00 02/26/25 08:57 50 MG Quetiapine Fumarate 200 mg HS PO 02/24/25 22:00 Methylprednisolone Sodium Succinate 40 mg BID IV 02/24/25 10:00 02/26/25 08:58 40 MG Morphine Sulfate 2 mg Q4HPRN PRN IV 02/24/25 08:45 02/26/25 08:56 2 MG Metronidazole 100 ml @ 100 mls/hr Q8HR IV 02/24/25 22:00 02/26/25 14:10 100 MLS/HR Gabapentin 300 mg TID PO 02/25/25 11:00 02/26/25 14:10 300 MG Laboratory Results Laboratory Tests 02/25/25 04:55 Assessment/Plan Assessment/Plan Intractable pain, Radiculopathy, Schmorl's Nodes, L4-L5 & L5-S1 moderate/severe canal stenosis, Tricuspid valve stenosis, Anxiety, Depression, Reviewed CT with no acute process Ortho recommended MRI Start gabapentin, lidocaine patch IV steroids PT eval Plan discussed with: Patient Date of Service: Feb 26, 2025 Billing Provider: CORNEL REYNOLDS MD Common Visit Codes: [id number] INP/OBS CARE(HIGH) CORNEL REYNOLDS MD Feb 26, 2025 18:30
[2025-02-26 21:00] VITALS: BP 121/81; PULSE 64; RESP 19; TEMP 98.8; O2SAT 97
[2025-02-27] VITALS (7 sets, daily range): BP systolic 108–144; BP diastolic 71–100; PULSE 57–71; RESP 19–20; TEMP 97.8–98.5; O2SAT 93–98
--- NOTE | 2025-02-27 13:41 | DVHPN2 ---
Subjective Still having severe pain Reviewed: H&P Changes from previous H/P or p: No Changes Eyes: No Pain, No Vision change, No Conjunctivae inflammation, No Eyelid inflammation, No Other, No Redness ENT: No Ear pain, No Ear discharge, No Nose pain, No Nose discharge, No Nose congestion, No Mouth pain, No Mouth swelling, No Throat pain, No Throat swelling, No Other Cardiovascular: No Chest Pain, No Palpitations, No Orthopnea, No Paroxysmal Noc. Dyspnea, No Edema, No Lt Headedness, No Other Respiratory: No Cough, No Dry, No Shortness of breath, No SOB with excertion, No Wheezing, No Hemoptysis, No Pleuritic Pain, No Sputum, No Other Gastrointestinal: No Nausea, No Vomiting, No Abdominal Pain, No Diarrhea, No Constipation, No Melena, No Hematochezia, No Other Genitourinary: No Dysuria, No Frequency, No Incontinence, No Hematuria, No Retention, No Other Musculoskeletal: leg pain Skin: No Rash, No Lesions, No Jaundice, No Bruising, No Other Objective Vitals Vital Signs Date Time Temp Pulse Resp B/P (MAP) Pulse Ox O2 Delivery O2 Flow Rate FiO2 02/27/25 12:35 98.5 61 20 128/77 (94) 95 98.5 02/27/25 08:00 Room Air* 0 21 Intake/Output Intake and Output 02/27/25 07:00 Intake Total 1250 ml Output Total 450 ml Balance 800 ml Intake Oral 1150 ml IV Total 100 ml Output Urine Total 450 ml # Voids 7 General Appearance: Alert, Oriented X3 HEENT: Atraumatic Lungs: Clear to auscultation Cardiovascular: Regular rate, Normal S1, Normal S2 Abdomen: Normal bowel sounds Medications Current Medications Medications Dose Ordered Sig/Estevan Route Start Time Stop Time Status Last Admin Dose Admin Acetaminophen/ Hydrocodone Bitart 1 tab Q4HP PRN PO 02/24/25 08:15 02/27/25 06:47 1 TAB Ondansetron HCl 4 mg Q4HP PRN IV 02/24/25 08:15 Docusate Sodium 100 mg BIDPRN PRN PO 02/24/25 08:15 Enoxaparin Sodium 40 mg DAILY SC 02/24/25 10:00 02/27/25 09:52 40 MG Acetaminophen 650 mg Q6HP PRN PO 02/24/25 08:15 Aspirin 81 mg DAILY PO 02/24/25 10:00 02/27/25 09:55 81 MG Patient Own Medication 20 mg TIDBM PO 02/24/25 10:00 02/27/25 09:55 20 MG Hydroxyzine Pamoate 50 mg DAILY PO 02/25/25 10:00 02/27/25 09:54 50 MG Quetiapine Fumarate 200 mg HS PO 02/24/25 22:00 Methylprednisolone Sodium Succinate 40 mg BID IV 02/24/25 10:00 02/27/25 09:55 40 MG Morphine Sulfate 2 mg Q4HPRN PRN IV 02/24/25 08:45 02/27/25 10:09 2 MG Metronidazole 100 ml @ 100 mls/hr Q8HR IV 02/24/25 22:00 02/27/25 05:26 100 MLS/HR Gabapentin 300 mg TID PO 02/25/25 11:00 02/27/25 05:26 300 MG Amitriptyline HCl 10 mg HS PO 02/27/25 22:00 Laboratory Results Laboratory Tests 02/25/25 04:55 Assessment/Plan Assessment/Plan Intractable pain, Radiculopathy, Schmorl's Nodes, L4-L5 & L5-S1 moderate/severe canal stenosis, Tricuspid valve stenosis, Anxiety, Depression, Reviewed CT with no acute process Ortho recommended MRI and pending due to pacemaker Start gabapentin, lidocaine patch Added amytriptyline today IV steroids PT eval Plan discussed with: Patient My Orders Orders - CORNEL REYNOLDS MD Procedure Category Date Status Time Amitriptyline Hcl PHA 02/27/25 In Process Tablet (Elavil Tablet) 22:00 Date of Service: Feb 27, 2025 Billing Provider: CORNEL REYNOLDS MD Common Visit Codes: [id number] INP/OBS CARE(HIGH) CORNEL REYNOLDS MD Feb 27, 2025 13:40
[2025-02-27] MEDS: AMITRIPTYLINE HCL 10 MG TAB PO SCH (21:20)
[2025-02-28 01:00] VITALS: BP 136/89; PULSE 59; RESP 18; TEMP 98; O2SAT 97
[2025-02-28 08:52] VITALS: BP 120/69; PULSE 59; RESP 20; TEMP 97.6; O2SAT 96
[2025-02-28 12:45] VITALS: BP 117/72; PULSE 61; RESP 20; TEMP 98.3; O2SAT 94
--- NOTE | 2025-02-28 13:24 | DVHPN2 ---
Subjective Pain is better today Reviewed: H&P Changes from previous H/P or p: No Changes Eyes: No Pain, No Vision change, No Conjunctivae inflammation, No Eyelid inflammation, No Other, No Redness ENT: No Ear pain, No Ear discharge, No Nose pain, No Nose discharge, No Nose congestion, No Mouth pain, No Mouth swelling, No Throat pain, No Throat swelling, No Other Cardiovascular: No Chest Pain, No Palpitations, No Orthopnea, No Paroxysmal Noc. Dyspnea, No Edema, No Lt Headedness, No Other Respiratory: No Cough, No Dry, No Shortness of breath, No SOB with excertion, No Wheezing, No Hemoptysis, No Pleuritic Pain, No Sputum, No Other Gastrointestinal: No Nausea, No Vomiting, No Abdominal Pain, No Diarrhea, No Constipation, No Melena, No Hematochezia, No Other Genitourinary: No Dysuria, No Frequency, No Incontinence, No Hematuria, No Retention, No Other Musculoskeletal: leg pain Skin: No Rash, No Lesions, No Jaundice, No Bruising, No Other Objective Vitals Vital Signs Date Time Temp Pulse Resp B/P (MAP) Pulse Ox O2 Delivery O2 Flow Rate FiO2 02/28/25 12:45 98.3 61 20 117/72 (87) 94 98.3 02/28/25 08:00 Room Air* 0 21 Intake/Output Intake and Output 02/28/25 07:00 Intake Total 1710 ml Balance 1710 ml Intake Oral 1710 ml # Voids 5 # Bowel Movements 2 General Appearance: Alert, Oriented X3 HEENT: Atraumatic Lungs: Clear to auscultation Cardiovascular: Regular rate, Normal S1, Normal S2 Abdomen: Normal bowel sounds Medications Current Medications Medications Dose Ordered Sig/Estevan Route Start Time Stop Time Status Last Admin Dose Admin Acetaminophen/ Hydrocodone Bitart 1 tab Q4HP PRN PO 02/24/25 08:15 02/28/25 12:53 1 TAB Ondansetron HCl 4 mg Q4HP PRN IV 02/24/25 08:15 Docusate Sodium 100 mg BIDPRN PRN PO 02/24/25 08:15 Enoxaparin Sodium 40 mg DAILY SC 02/24/25 10:00 02/28/25 09:58 40 MG Acetaminophen 650 mg Q6HP PRN PO 02/24/25 08:15 Aspirin 81 mg DAILY PO 02/24/25 10:00 02/28/25 09:58 81 MG Patient Own Medication 20 mg TIDBM PO 02/24/25 10:00 02/28/25 09:58 20 MG Hydroxyzine Pamoate 50 mg DAILY PO 02/25/25 10:00 02/28/25 09:58 50 MG Quetiapine Fumarate 200 mg HS PO 02/24/25 22:00 Methylprednisolone Sodium Succinate 40 mg BID IV 02/24/25 10:00 02/28/25 09:57 40 MG Morphine Sulfate 2 mg Q4HPRN PRN IV 02/24/25 08:45 02/28/25 10:00 2 MG Metronidazole 100 ml @ 100 mls/hr Q8HR IV 02/24/25 22:00 02/28/25 05:37 100 MLS/HR Gabapentin 300 mg TID PO 02/25/25 11:00 02/28/25 05:37 300 MG Amitriptyline HCl 10 mg HS PO 02/27/25 22:00 02/27/25 21:20 10 MG Laboratory Results Laboratory Tests 02/25/25 04:55 Assessment/Plan Assessment/Plan Intractable pain, Radiculopathy, Schmorl's Nodes, L4-L5 & L5-S1 moderate/severe canal stenosis, Tricuspid valve stenosis, Anxiety, Depression, Reviewed CT with no acute process Ortho recommended MRI and pending due to pacemaker pending imaging Start gabapentin, lidocaine patch Added amytriptyline today IV steroids PT eval Dispo: Pending MRI and PT eval Plan discussed with: Patient Date of Service: Feb 28, 2025 Billing Provider: CORNEL REYNOLDS MD Common Visit Codes: [id number] INP/OBS CARE(HIGH) CORNEL REYNOLDS MD Feb 28, 2025 13:24
[2025-02-28 17:24] VITALS: BP 103/67; PULSE 72; RESP 20; TEMP 98.5; O2SAT 95
[2025-02-28 21:00] VITALS: BP 133/76; PULSE 70; RESP 19; TEMP 98.2; O2SAT 96
--- NOTE | 2025-02-28 22:27 | DVHINCON2 ---
Date of service: Feb 28, 2025 Referring Physician Kimber Reason for Consultation Pacemaker History of Present Illness This is a 39-year-old female with past medical history of sepsis, anxiety, depression, tricuspid valve replacement, and pacemaker who presented to the ED on 02/24 with a complaint of right leg pain. Patient states her problems started about 2 weeks ago with vaginal pain. She went to [facility] and was told she has a vaginal infection. She was sent home with 3 PO antibiotics. She states she took them for about 1 week then stopped because they weren't helping. She states the pain has been progressing and worsening. The pain now starts at her vagina and shoots down her right leg. On 02/23 she fell twice due to her leg giving out form pain. RLE Venous duplex: no right femoropopliteal venous thrombosis.Patient was admitted to the hospital. I am asked to consult on this patient. Family History: Diabetes mellitus FH: cancer 19 CHILD, Onset:Unknown Hypertension G8 MOTHER, Onset:Unknown Allergies: Coded Allergies: NO KNOWN ALLERGIES (Unverified , 02/24/25) Home Meds Reported Medications Cariprazine HCl (Vraylar) 3 Mg Cap, 6 MG PO DAILY, CAP 02/24/25 Lactulose (Enulose) 10 Gm/15 Ml Maggie, 10 GM PO DAILYP PRN for FOR CONSTIPATION, ML 02/24/25 Quetiapine Fumerate (QUETIAPINE FUMARATE) 200 Mg Tab, 200 MG PO HS, TAB 02/24/25 Hydroxyzine Hcl (Hydroxyzine Hcl) 50 Mg Tab, 1 TAB PO DAILY 02/24/25 Aspirin (Aspir-Low) 81 Mg Tab, 81 MG PO DAILY for STOP ON 02/29/24, MG 02/28/24 Dicyclomine Hcl (Dicyclomine Hcl) 20 Mg Tab, 20 MG PO TIDBM for diverticulitis, MG 02/28/24 Discontinued Scripts Hydroxyzine Pamoate (Vistaril) 25 Mg Cap, 1 CAP PO Q8HPRN PRN, #20 CAP 1 Refill Needed for itching no driving 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 Current Medications Current Medications Medications (Trade) Dose Ordered Sig/Estevan Route PRN Reason Start Time Stop Time Status Last Admin Amitriptyline HCl (Elavil Tablet) 10 mg HS PO 02/27/25 22:00 02/28/25 21:24 Review of Systems Constitutional: denies: chills, diaphoresis, fatigue, fever, malaise, sweats, weakness, others EENTM: denies: blurred vision, double vision, ear bleeding, ear discharge, ear drainage, ear pain, ear ringing, eye pain, eye redness, hearing loss, mouth pa in, mouth swelling, nasal discharge, nose bleeding, nose congestion, nose pain, photophobia, tearing, throat pain, throat swelling, voice changes, others Respiratory: denies: cough, hemoptysis, orthopnea, SOB at rest, shortness of breath, SOB with excertion, stridor, wheezing, others Cardiovascular: denies: chest pain, dizzy spells, diaphoresis, Dyspnea on exertion, edema, irregular heart beat, left arm pain, lightheadedness, palpitations, PND, syncope, others Gastrointestinal: denies: abdomen distended, abdominal pain, blood streaked bowels, constipated, diarrhea, dysphagia, difficulty swallowing, hematemesis, melena, nausea, poor appetite, poor fluid intake, rectal bleeding, rectal pain, vomiting, others Genitourinary: denies: abnormal vagina bleeding, burning, dyspareunia, dysuria, flank pain, frequency, hematuria, incontinence, pain, , vagina discharge, urgency, others Neurological: denies: dizziness, fainting, headache, left sided numbness, left sided weakness, numbness, paresthesia, pre-existing deficit, right sided numbness, right sided weakness, seizure, speech problems, tingling, tremors, weakness, others Musculoskeletal: reports: muscle pain, muscle stiffness; denies: back pain, gout, joint pain, joint swelling, neck pain, others Integumetry: denies: bruises, change in color, change in hair/nails, dryness, laceration, lesions, lumps, rash, wounds, others Vital Signs Vital Signs Date Time Temp Pulse Resp B/P (MAP) Pulse Ox O2 Delivery O2 Flow Rate FiO2 02/28/25 17:24 98.5 72 20 103/67 (79) 95 98.5 02/28/25 08:00 Room Air* 0 21 Physical Exam GENERAL: Alert and oriented x 3. No acute distress. EYES: PERRL, EOMI. Anicteric. HENT: Moist mucous membranes. LUNGS: Clear to auscultation bilaterally. CARDIOVASCULAR: Regular rate and rhythm. ABDOMEN: Soft, nontender and nondistended. EXTREMITIES: No edema. NEUROLOGIC: No focal neurological deficits. SKIN: Warm, dry. Labs/Diagnostic Data Labs Test 02/25/25 04:55 02/24/25 19:24 02/24/25 05:16 Range/Units White Blood Count 14.0 #H 4.4-10.8 10^3/uL Red Blood Count 4.76 4.0-5.20 10^6/uL Hemoglobin 11.6 L 12.2-16.2 g/dL Hematocrit 36.0 36.0-46.0 % Mean Corpuscular Volume 75.6 L 80.0-100.0 fL Mean Corpuscular Hemoglobin 24.5 L 28.0-32.0 pg Mean Corpuscular Hemoglobin Concent 32.3 32.0-36.0 g/dL Red Cell Distribution Width 18.3 H 11.8-14.3 % Platelet Count 206 140-450 10^3/uL Mean Platelet Volume 9.7 6.9-10.8 fL Neutrophils (%) (Auto) 91.3 H 37.0-80.0 % Lymphocytes (%) (Auto) 6.6 L 10.0-50.0 % Monocytes (%) (Auto) 1.7 0.0-12.0 % Eosinophils (%) (Auto) 0.0 0.0-7.0 % Basophils (%) (Auto) 0.4 0.0-2.0 % Neutrophils # (Auto) 12.8 H 1.6-8.6 10 ^3/uL Lymphocytes # (Auto) 0.9 0.4-5.4 10 ^3/uL Monocytes # (Auto) 0.2 0-1.3 10 ^3/uL Eosinophils # (Auto) 0 0-0.8 10 ^3/uL Basophils # (Auto) 0 0-0.2 10 ^3/uL Nucleated Red Blood Cells 0.0 % Sodium Level 140 136-145 mmol/L Potassium Level 4.3 3.5-5.1 mmol/L Chloride Level 108 H 98-107 mmol/L Carbon Dioxide Level 21 20-31 mmol/L Anion Gap 11 5-15 Blood Urea Nitrogen 17 9-23 mg/dL Creatinine 0.75 0.550-1.02 mg/dL Glomerular Filtration Rate Calc 103 >90 mL/min BUN/Creatinine Ratio 22.7 H 10.0-20.0 Serum Glucose 134 H 74-106 mg/dL Calcium Level 9.2 8.7-10.4 mg/dL Total Bilirubin 0.7 0.2-1.0 mg/dL Aspartate Amino Transferase (AST) 23 13-40 U/L Alanine Aminotransferase (ALT) 24 7-40 U/L Alkaline Phosphatase 72 46-116 U/L Total Protein 6.9 5.7-8.2 g/dL Albumin 4.3 3.2-4.8 g/dL Hepatitis C Antibody Negative Negative Lactic Acid Level 1.6 0.4-2.0 mmol/L C-Reactive Protein High Sensitivity 0.74 <1.0 mg/dL Assessment Intractable pain. Radiculopathy. Schmorl's Nodes. L4-L5 & L5-S1 moderate/severe canal stenosis. Tricuspid valve stenosis. Anxiety. Depression. History of PPM. Plan/Recommendation I agree with your ongoing assessment and care of plan. Morphine and [place] for pain management. Amitriptyline. Aspirin. DVT prophylactics. Additional plan as per the hospital course. A total of 45 minutes was spent reviewing the patient record, examining the patient, making a diagnostic and therapeutic plan, discussing this plan with medical personnel, following up on diagnostic studies and following the patient for clinical stability excluding any and all procedures. At least 50% of this time was spent in direct, [id number] contact. Plan discussed with: Patient IRENE SIMEON MD Feb 28, 2025 22:07
[2025-03-01 01:00] VITALS: BP 114/72; PULSE 86; RESP 17; TEMP 98; O2SAT 100
[2025-03-01 05:00] VITALS: BP 112/72; PULSE 54; RESP 19; TEMP 98.1; O2SAT 97
[2025-03-01 08:48] VITALS: BP 123/81; PULSE 60; RESP 16; TEMP 97.9; O2SAT 98
[2025-03-01 12:38] VITALS: BP 124/82; PULSE 64; RESP 16; TEMP 98.8; O2SAT 92
--- NOTE | 2025-03-01 16:16 | DVHPN2 ---
Subjective I am assuming the care of the patient from today onwards. Patient is complaining of low back pain radiating to the lower extremity on the right side. Reviewed: H&P Changes from previous H/P or p: No Changes Eyes: No Pain, No Vision change, No Conjunctivae inflammation, No Eyelid inflammation, No Other, No Redness ENT: No Ear pain, No Ear discharge, No Nose pain, No Nose discharge, No Nose congestion, No Mouth pain, No Mouth swelling, No Throat pain, No Throat swelling, No Other Cardiovascular: No Chest Pain, No Palpitations, No Orthopnea, No Paroxysmal Noc. Dyspnea, No Edema, No Lt Headedness, No Other Respiratory: No Cough, No Dry, No Shortness of breath, No SOB with excertion, No Wheezing, No Hemoptysis, No Pleuritic Pain, No Sputum, No Other Gastrointestinal: No Nausea, No Vomiting, No Abdominal Pain, No Diarrhea, No Constipation, No Melena, No Hematochezia, No Other Genitourinary: No Dysuria, No Frequency, No Incontinence, No Hematuria, No Retention, No Other Musculoskeletal: leg pain Skin: No Rash, No Lesions, No Jaundice, No Bruising, No Other Objective Vitals Vital Signs Date Time Temp Pulse Resp B/P (MAP) Pulse Ox O2 Delivery O2 Flow Rate FiO2 03/01/25 12:38 98.8 64 16 124/82 (96) 92 98.8 03/01/25 08:00 Room Air* 0 21 Intake/Output Intake and Output 03/01/25 07:00 Intake Total 1480 ml Balance 1480 ml Intake Oral 1280 ml IV Total 200 ml # Voids 5 Exam HEENT pupils are reactive Neck is supple CV is S1-S2 regular rate and rhythm Diminished breath sounds bases GI positive bowel sound Extremity no edema 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 General Appearance: Alert, Oriented X3 HEENT: Atraumatic Lungs: Clear to auscultation Cardiovascular: Regular rate, Normal S1, Normal S2 Abdomen: Normal bowel sounds Medications Current Medications Medications Dose Ordered Sig/Estevan Route Start Time Stop Time Status Last Admin Dose Admin Acetaminophen/ Hydrocodone Bitart 1 tab Q4HP PRN PO 02/24/25 08:15 03/01/25 14:26 1 TAB Ondansetron HCl 4 mg Q4HP PRN IV 02/24/25 08:15 Docusate Sodium 100 mg BIDPRN PRN PO 02/24/25 08:15 Enoxaparin Sodium 40 mg DAILY SC 02/24/25 10:00 03/01/25 09:25 40 MG Acetaminophen 650 mg Q6HP PRN PO 02/24/25 08:15 Aspirin 81 mg DAILY PO 02/24/25 10:00 03/01/25 09:26 81 MG Patient Own Medication 20 mg TIDBM PO 02/24/25 10:00 03/01/25 15:01 20 MG Hydroxyzine Pamoate 50 mg DAILY PO 02/25/25 10:00 03/01/25 09:26 50 MG Quetiapine Fumarate 200 mg HS PO 02/24/25 22:00 Methylprednisolone Sodium Succinate 40 mg BID IV 02/24/25 10:00 03/01/25 09:25 40 MG Morphine Sulfate 2 mg Q4HPRN PRN IV 02/24/25 08:45 03/01/25 09:25 2 MG Metronidazole 100 ml @ 100 mls/hr Q8HR IV 02/24/25 22:00 03/01/25 14:32 100 MLS/HR Gabapentin 300 mg TID PO 02/25/25 11:00 03/01/25 14:59 300 MG Amitriptyline HCl 10 mg HS PO 02/27/25 22:00 02/28/25 21:24 10 MG Laboratory Results Laboratory Tests 02/25/25 04:55 Assessment/Plan Assessment/Plan 39-year-old female with a known history of morbid obesity classIII, status post pacemaker is here for low back pain radiating to the right lower extremity found to have 1. Intractable low back pain 2. Lumbar radiculopathy 3. Lumbar spine stenosis at L4-5 S1 4. Morbid obesity classIII 5. Status post pacemaker -MRI of the lumbar spine, pain management, DVT GI prophylaxis, spine surgery consultation. Plan discussed with: Patient Problem List: (1) Right leg pain (2) Intractable pain Date of Service: Mar 01, 2025 Billing Provider: GIOVANNI LABOY MD Common Visit Codes: [id number] INP/OBS CARE(HIGH) GIOVANNI LABOY MD Mar 01, 2025 16:16
[2025-03-01 16:58] VITALS: BP 113/75; PULSE 72; RESP 16; TEMP 98; O2SAT 97
[2025-03-01 21:00] VITALS: BP 135/88; PULSE 66; RESP 18; TEMP 98; O2SAT 96
--- NOTE | 2025-03-01 23:56 | DVHPN2 ---
Progress Note - Dictate Date Seen: Mar 01, 2025 Medical Necessity Reason Pt with a Central, PICC or Fol: No Subjective Patient was seen and evaluated in follow up. Patient is complaining of low back pain radiating to the lower extremity on the right side.Patient is stable on room air. vital signs Vital Sign Date Time Temp Pulse Resp B/P (MAP) Pulse Ox O2 Delivery O2 Flow Rate FiO2 03/01/25 22:23 60 18 126/71 03/01/25 21:00 98.0 96 98.0 03/01/25 20:00 Room Air* 0 21 Total Intake and Output 02/28/25 02/28/25 03/01/25 15:00 23:00 07:00 Intake Total 800 ml 680 ml Balance 800 ml 680 ml medications Current Medications Medications Dose Ordered Sig/Estevan Route Start Time Stop Time Status Last Admin Dose Admin Acetaminophen/ Hydrocodone Bitart 1 tab Q4HP PRN PO 02/24/25 08:15 03/01/25 18:37 1 TAB Ondansetron HCl 4 mg Q4HP PRN IV 02/24/25 08:15 Docusate Sodium 100 mg BIDPRN PRN PO 02/24/25 08:15 Enoxaparin Sodium 40 mg DAILY SC 02/24/25 10:00 03/01/25 09:25 40 MG Acetaminophen 650 mg Q6HP PRN PO 02/24/25 08:15 Aspirin 81 mg DAILY PO 02/24/25 10:00 03/01/25 09:26 81 MG Patient Own Medication 20 mg TIDBM PO 02/24/25 10:00 03/01/25 20:00 20 MG Hydroxyzine Pamoate 50 mg DAILY PO 02/25/25 10:00 03/01/25 09:26 50 MG Quetiapine Fumarate 200 mg HS PO 02/24/25 22:00 Methylprednisolone Sodium Succinate 40 mg BID IV 02/24/25 10:00 03/01/25 21:37 40 MG Morphine Sulfate 2 mg Q4HPRN PRN IV 02/24/25 08:45 03/01/25 21:53 2 MG Metronidazole 100 ml @ 100 mls/hr Q8HR IV 02/24/25 22:00 03/01/25 21:35 100 MLS/HR Gabapentin 300 mg TID PO 02/25/25 11:00 03/01/25 21:36 300 MG Amitriptyline HCl 10 mg HS PO 02/27/25 22:00 03/01/25 21:36 10 MG objective GENERAL: Alert and oriented x 3. No acute distress. EYES: PERRL, EOMI. Anicteric. HENT: Moist mucous membranes. LUNGS: Clear to auscultation bilaterally. CARDIOVASCULAR: Regular rate and rhythm. ABDOMEN: Soft, nontender and nondistended. EXTREMITIES: No edema. NEUROLOGIC: No focal neurological deficits. SKIN: Warm, dry. laboratory and microbiology Laboratory Tests 02/25/25 04:55 Test 02/25/25 04:55 Range/Units Serum Glucose 134 H 74-106 mg/dL Problem List Intractable pain. Radiculopathy. Schmorl's Nodes. L4-L5 & L5-S1 moderate/severe canal stenosis. Tricuspid valve stenosis. Anxiety. Depression. History of PPM. Assessment/Plan Continued all current supportive medical care. Morphine and [place] for pain management. Amitriptyline. Aspirin. DVT prophylactics. Additional plan as per the hospital course. Plan discussed with: Patient IRENE SIMEON MD Mar 01, 2025 23:54
[2025-03-02 01:00] VITALS: BP 113/76; PULSE 61; RESP 18; TEMP 97.9; O2SAT 97
[2025-03-02 05:00] VITALS: BP 144/96; PULSE 60; RESP 18; TEMP 97.8; O2SAT 99
[2025-03-02 09:00] VITALS: BP 130/86; PULSE 59; RESP 17; TEMP 97.8; O2SAT 100
[2025-03-02 13:00] VITALS: BP 126/84; PULSE 68; RESP 15; TEMP 98.9; O2SAT 95
--- NOTE | 2025-03-02 14:17 | DVHPN2 ---
Subjective Patient is complaining of low back pain radiating to the lower extremity on the right side. MRI lumbar spine is pending. Reviewed: H&P Changes from previous H/P or p: No Changes Eyes: No Pain, No Vision change, No Conjunctivae inflammation, No Eyelid inflammation, No Other, No Redness ENT: No Ear pain, No Ear discharge, No Nose pain, No Nose discharge, No Nose congestion, No Mouth pain, No Mouth swelling, No Throat pain, No Throat swelling, No Other Cardiovascular: No Chest Pain, No Palpitations, No Orthopnea, No Paroxysmal Noc. Dyspnea, No Edema, No Lt Headedness, No Other Respiratory: No Cough, No Dry, No Shortness of breath, No SOB with excertion, No Wheezing, No Hemoptysis, No Pleuritic Pain, No Sputum, No Other Gastrointestinal: No Nausea, No Vomiting, No Abdominal Pain, No Diarrhea, No Constipation, No Melena, No Hematochezia, No Other Genitourinary: No Dysuria, No Frequency, No Incontinence, No Hematuria, No Retention, No Other Musculoskeletal: leg pain Skin: No Rash, No Lesions, No Jaundice, No Bruising, No Other Objective Vitals Vital Signs Date Time Temp Pulse Resp B/P (MAP) Pulse Ox O2 Delivery O2 Flow Rate FiO2 03/02/25 10:35 68 16 123/72 03/02/25 09:00 97.8 100 97.8 03/02/25 08:00 Room Air* 0 21 Intake/Output Intake and Output 03/02/25 07:00 Intake Total 2226 ml Balance 2226 ml Intake Oral 1926 ml IV Total 300 ml # Voids 5 # Bowel Movements 1 Exam HEENT pupils are reactive Neck is supple CV is S1-S2 regular rate and rhythm Diminished breath sounds bases GI positive bowel sound 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 General Appearance: Alert, Oriented X3 HEENT: Atraumatic Lungs: Clear to auscultation Cardiovascular: Regular rate, Normal S1, Normal S2 Abdomen: Normal bowel sounds Medications Current Medications Medications Dose Ordered Sig/Estevan Route Start Time Stop Time Status Last Admin Dose Admin Acetaminophen/ Hydrocodone Bitart 1 tab Q4HP PRN PO 02/24/25 08:15 03/02/25 13:06 1 TAB Ondansetron HCl 4 mg Q4HP PRN IV 02/24/25 08:15 Docusate Sodium 100 mg BIDPRN PRN PO 02/24/25 08:15 Enoxaparin Sodium 40 mg DAILY SC 02/24/25 10:00 03/02/25 10:04 40 MG Acetaminophen 650 mg Q6HP PRN PO 02/24/25 08:15 Aspirin 81 mg DAILY PO 02/24/25 10:00 03/02/25 10:03 81 MG Patient Own Medication 20 mg TIDBM PO 02/24/25 10:00 03/02/25 10:04 20 MG Hydroxyzine Pamoate 50 mg DAILY PO 02/25/25 10:00 03/02/25 10:03 50 MG Quetiapine Fumarate 200 mg HS PO 02/24/25 22:00 Methylprednisolone Sodium Succinate 40 mg BID IV 02/24/25 10:00 03/02/25 10:03 40 MG Morphine Sulfate 2 mg Q4HPRN PRN IV 02/24/25 08:45 03/02/25 10:05 2 MG Metronidazole 100 ml @ 100 mls/hr Q8HR IV 02/24/25 22:00 03/02/25 05:06 100 MLS/HR Gabapentin 300 mg TID PO 02/25/25 11:00 03/02/25 05:08 300 MG Amitriptyline HCl 10 mg HS PO 02/27/25 22:00 03/01/25 21:36 10 MG Laboratory Results Laboratory Tests 02/25/25 04:55 Assessment/Plan Assessment/Plan 39-year-old female with a known history of morbid obesity classIII, status post pacemaker is here for low back pain radiating to the right lower extremity found to have 1. Intractable low back pain 2. Lumbar radiculopathy 3. Lumbar spine stenosis at L4-5 S1 4. Morbid obesity classIII 5. Status post pacemaker -MRI of the lumbar spine, pain management, DVT GI prophylaxis, spine surgery consultation. Plan discussed with: Patient Date of Service: Mar 02, 2025 Billing Provider: GIOVANNI LABOY MD Common Visit Codes: [id number] INP/OBS CARE(HIGH) GIOVANNI LABOY MD Mar 02, 2025 14:17
[2025-03-02 17:00] VITALS: BP 115/68; PULSE 73; RESP 16; TEMP 99.2; O2SAT 97
[2025-03-02 21:00] VITALS: BP 104/72; PULSE 66; RESP 18; TEMP 97.5; O2SAT 97
--- NOTE | 2025-03-02 23:40 | DVHPN2 ---
Progress Note - Dictate Date Seen: Mar 02, 2025 Medical Necessity Reason Pt with a Central, PICC or Fol: No Subjective Patient was seen and evaluated in follow up. Patient is complaining of low back pain radiating to the lower extremity on the right side. Pending confirmation from [facility] for MRI compatibility. vital signs Vital Sign Date Time Temp Pulse Resp B/P (MAP) Pulse Ox O2 Delivery O2 Flow Rate FiO2 03/02/25 10:35 68 16 123/72 03/02/25 09:00 97.8 100 97.8 03/02/25 08:00 Room Air* 0 21 Total Intake and Output 03/01/25 03/01/25 03/02/25 15:00 23:00 07:00 Intake Total 100 ml 1400 ml 726 ml Balance 100 ml 1400 ml 726 ml medications Current Medications Medications Dose Ordered Sig/Estevan Route Start Time Stop Time Status Last Admin Dose Admin Acetaminophen/ Hydrocodone Bitart 1 tab Q4HP PRN PO 02/24/25 08:15 03/02/25 13:06 1 TAB Ondansetron HCl 4 mg Q4HP PRN IV 02/24/25 08:15 Docusate Sodium 100 mg BIDPRN PRN PO 02/24/25 08:15 Enoxaparin Sodium 40 mg DAILY SC 02/24/25 10:00 03/02/25 10:04 40 MG Acetaminophen 650 mg Q6HP PRN PO 02/24/25 08:15 Aspirin 81 mg DAILY PO 02/24/25 10:00 03/02/25 10:03 81 MG Patient Own Medication 20 mg TIDBM PO 02/24/25 10:00 03/02/25 10:04 20 MG Hydroxyzine Pamoate 50 mg DAILY PO 02/25/25 10:00 03/02/25 10:03 50 MG Quetiapine Fumarate 200 mg HS PO 02/24/25 22:00 Methylprednisolone Sodium Succinate 40 mg BID IV 02/24/25 10:00 03/02/25 10:03 40 MG Morphine Sulfate 2 mg Q4HPRN PRN IV 02/24/25 08:45 03/02/25 10:05 2 MG Metronidazole 100 ml @ 100 mls/hr Q8HR IV 02/24/25 22:00 03/02/25 05:06 100 MLS/HR Gabapentin 300 mg TID PO 02/25/25 11:00 03/02/25 05:08 300 MG Amitriptyline HCl 10 mg HS PO 02/27/25 22:00 03/01/25 21:36 10 MG objective GENERAL: Alert and oriented x 3. No acute distress. EYES: PERRL, EOMI. Anicteric. HENT: Moist mucous membranes. LUNGS: Clear to auscultation bilaterally. CARDIOVASCULAR: Regular rate and rhythm. ABDOMEN: Soft, nontender and nondistended. EXTREMITIES: No edema. NEUROLOGIC: No focal neurological deficits. SKIN: Warm, dry. laboratory and microbiology Laboratory Tests 02/25/25 04:55 Test 02/25/25 04:55 Range/Units Serum Glucose 134 H 74-106 mg/dL Problem List Intractable pain. Radiculopathy. Schmorl's Nodes. L4-L5 & L5-S1 moderate/severe canal stenosis. Tricuspid valve stenosis. Anxiety. Depression. History of PPM. Assessment/Plan Continued all current supportive medical care. Morphine and [place] for pain management. Aspirin. DVT prophylactics. IV Solu-Medrol. Additional plan as per the hospital course. Dietary Evaluation Review Comments: Assessment: Patient with obesity and uncontrolled DM; requires weight reduction and cardiac dietary management. Intervention: Accommodate patients food preferences while maintaining therapeutic goals. Reinforce Cardiac Low Carbohydrate Diet and CCHO principles. Educated patient on using non-salt herbal seasonings to enhance flavor without increasing sodium intake. Encouraged adherence to weight-reducing strategies within cardiac diet guidelines. Plan: Continue current cardiac low-CHO diet. Monitor weight trends, blood glucose, and dietary compliance. Reassess nutrition needs and patient understanding at follow-up. Expected Outcomes/Goals: Gradual wt loss Plan discussed with: Patient IRENE SIMEON MD Mar 02, 2025 14:23
[2025-03-03] VITALS (7 sets, daily range): BP systolic 117–144; BP diastolic 72–89; PULSE 60–79; RESP 16–20; TEMP 97.9–98.9; O2SAT 95–99
[2025-03-03 13:51] LABS: Chloride 100 mmol/L (98-107); Potassium 4.3 mmol/L (3.5-5.1)
[2025-03-03 13:53] LABS: Anion Gap 8 (5-15); Calcium 9.2 mg/dL (8.7-10.4); Carbon Dioxide 27 mmol/L (20-31)
[2025-03-03 13:55] LABS: Nucleated Red Blood Cells % 0.1 %
[2025-03-03 13:57] LABS: Hematocrit 42.6 % (36.0-46.0); Hemoglobin 14.1 g/dL (12.2-16.2); Mean Corpuscular Hemoglobin 24.5 pg (28.0-32.0); Mean Corpuscular Volume 74.0 fL (80.0-100.0)
[2025-03-03 13:58] LABS: BUN/Creatinine Ratio 14.5 (10.0-20.0); Blood Urea Nitrogen 12 mg/dL (9-23)
[2025-03-03 14:09] LABS: Glucose 193 mg/dL (74-106); Sodium 135 mmol/L (136-145)
[2025-03-03] MEDS: OXYCODONE W/ ACETAMINOPHEN 5/325MG TABLET PO ONE (14:14)
--- NOTE | 2025-03-03 16:13 | DVHPN2 ---
Subjective Patient is complaining of low back pain radiating to the lower extremity on the right side. MRI lumbar spine is pending. Reviewed: H&P Changes from previous H/P or p: No Changes Eyes: No Pain, No Vision change, No Conjunctivae inflammation, No Eyelid inflammation, No Other, No Redness ENT: No Ear pain, No Ear discharge, No Nose pain, No Nose discharge, No Nose congestion, No Mouth pain, No Mouth swelling, No Throat pain, No Throat swelling, No Other Cardiovascular: No Chest Pain, No Palpitations, No Orthopnea, No Paroxysmal Noc. Dyspnea, No Edema, No Lt Headedness, No Other Respiratory: No Cough, No Dry, No Shortness of breath, No SOB with excertion, No Wheezing, No Hemoptysis, No Pleuritic Pain, No Sputum, No Other Gastrointestinal: No Nausea, No Vomiting, No Abdominal Pain, No Diarrhea, No Constipation, No Melena, No Hematochezia, No Other Genitourinary: No Dysuria, No Frequency, No Incontinence, No Hematuria, No Retention, No Other Musculoskeletal: leg pain Skin: No Rash, No Lesions, No Jaundice, No Bruising, No Other Objective Vitals Vital Signs Date Time Temp Pulse Resp B/P (MAP) Pulse Ox O2 Delivery O2 Flow Rate FiO2 03/03/25 12:30 98.3 74 19 144/84 (104) 96 98.3 03/03/25 08:00 Room Air* 0 21 Intake/Output Intake and Output 03/03/25 07:00 Intake Total 1575 ml Output Total 2 ml Balance 1573 ml Intake Oral 1475 ml IV Total 100 ml Output Urine Total 2 ml # Voids 4 # Bowel Movements 1 Exam HEENT pupils are reactive Neck is supple CV is S1-S2 regular rate and rhythm Diminished breath sounds bases GI positive bowel sound 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 General Appearance: Alert, Oriented X3 HEENT: Atraumatic Lungs: Clear to auscultation Cardiovascular: Regular rate, Normal S1, Normal S2 Abdomen: Normal bowel sounds Medications Current Medications Medications Dose Ordered Sig/Estevan Route Start Time Stop Time Status Last Admin Dose Admin Acetaminophen/ Hydrocodone Bitart 1 tab Q4HP PRN PO 02/24/25 08:15 03/03/25 10:13 1 TAB Ondansetron HCl 4 mg Q4HP PRN IV 02/24/25 08:15 Docusate Sodium 100 mg BIDPRN PRN PO 02/24/25 08:15 Enoxaparin Sodium 40 mg DAILY SC 02/24/25 10:00 03/03/25 10:10 40 MG Acetaminophen 650 mg Q6HP PRN PO 02/24/25 08:15 Aspirin 81 mg DAILY PO 02/24/25 10:00 03/03/25 10:11 81 MG Patient Own Medication 20 mg TIDBM PO 02/24/25 10:00 03/03/25 10:13 20 MG Hydroxyzine Pamoate 50 mg DAILY PO 02/25/25 10:00 03/03/25 10:11 50 MG Quetiapine Fumarate 200 mg HS PO 02/24/25 22:00 Methylprednisolone Sodium Succinate 40 mg BID IV 02/24/25 10:00 03/03/25 10:11 40 MG Morphine Sulfate 2 mg Q4HPRN PRN IV 02/24/25 08:45 03/03/25 01:10 2 MG Metronidazole 100 ml @ 100 mls/hr Q8HR IV 02/24/25 22:00 03/03/25 14:13 100 MLS/HR Gabapentin 300 mg TID PO 02/25/25 11:00 03/03/25 14:14 300 MG Amitriptyline HCl 10 mg HS PO 02/27/25 22:00 03/02/25 22:00 10 MG Laboratory Results Laboratory Tests 03/03/25 13:03 Chemistry Test 03/03/25 13:03 Calcium Level 9.2 mg/dL (8.7-10.4) Assessment/Plan Assessment/Plan 39-year-old female with a known history of morbid obesity classIII, status post pacemaker is here for low back pain radiating to the right lower extremity found to have 1. Intractable low back pain 2. Lumbar radiculopathy 3. Lumbar spine stenosis at L4-5 S1 4. Morbid obesity classIII 5. Status post pacemaker 6. Recent diagnosis of cervicitis, on antibiotics -MRI of the lumbar spine has been canceled, pain management, DVT GI prophylaxis, spine surgery consultation. Plan discussed with: Patient My Orders Orders - GIOVANNI LABOY MD Procedure Category Date Status Time * Retirement Benefits Specialist CONS 03/03/25 Transmitted Consult Date of Service: Mar 03, 2025 Billing Provider: GIOVANNI LABOY MD Common Visit Codes: [id number] INP/OBS CARE(HIGH) GIOVANNI LABOY MD Mar 03, 2025 16:13
--- NOTE | 2025-03-03 16:30 | DVHPN2 ---
Progress Note - Dictate Date Seen: Mar 03, 2025 Medical Necessity Reason Pt with a Central, PICC or Fol: No Subjective Patient was seen and evaluated in follow up. No overnight events. Patient is complaining of severe lower back pain with radiation to her RLE. MRI lumbar spine is pending. vital signs Vital Sign Date Time Temp Pulse Resp B/P (MAP) Pulse Ox O2 Delivery O2 Flow Rate FiO2 03/03/25 12:30 98.3 74 19 144/84 (104) 96 98.3 03/03/25 08:00 Room Air* 0 21 Total Intake and Output 03/02/25 03/02/25 03/03/25 15:00 23:00 07:00 Intake Total 1025 ml 550 ml Output Total 2 ml Balance 1025 ml 548 ml medications Current Medications Medications Dose Ordered Sig/Estevan Route Start Time Stop Time Status Last Admin Dose Admin Acetaminophen/ Hydrocodone Bitart 1 tab Q4HP PRN PO 02/24/25 08:15 03/03/25 10:13 1 TAB Ondansetron HCl 4 mg Q4HP PRN IV 02/24/25 08:15 Docusate Sodium 100 mg BIDPRN PRN PO 02/24/25 08:15 Enoxaparin Sodium 40 mg DAILY SC 02/24/25 10:00 03/03/25 10:10 40 MG Acetaminophen 650 mg Q6HP PRN PO 02/24/25 08:15 Aspirin 81 mg DAILY PO 02/24/25 10:00 03/03/25 10:11 81 MG Patient Own Medication 20 mg TIDBM PO 02/24/25 10:00 03/03/25 10:13 20 MG Hydroxyzine Pamoate 50 mg DAILY PO 02/25/25 10:00 03/03/25 10:11 50 MG Quetiapine Fumarate 200 mg HS PO 02/24/25 22:00 Methylprednisolone Sodium Succinate 40 mg BID IV 02/24/25 10:00 03/03/25 10:11 40 MG Morphine Sulfate 2 mg Q4HPRN PRN IV 02/24/25 08:45 03/03/25 01:10 2 MG Metronidazole 100 ml @ 100 mls/hr Q8HR IV 02/24/25 22:00 03/03/25 05:24 100 MLS/HR Gabapentin 300 mg TID PO 02/25/25 11:00 03/03/25 05:24 300 MG Amitriptyline HCl 10 mg HS PO 02/27/25 22:00 03/02/25 22:00 10 MG objective GENERAL: Alert and oriented x 3. No acute distress. EYES: PERRL, EOMI. Anicteric. HENT: Moist mucous membranes. LUNGS: Clear to auscultation bilaterally. CARDIOVASCULAR: Regular rate and rhythm. ABDOMEN: Soft, nontender and nondistended. EXTREMITIES: No edema. NEUROLOGIC: No focal neurological deficits. SKIN: Warm, dry. laboratory and microbiology Laboratory Tests 02/25/25 04:55 Test 02/25/25 04:55 Range/Units Serum Glucose 134 H 74-106 mg/dL Problem List Intractable pain. Radiculopathy. Schmorl's Nodes. L4-L5 & L5-S1 moderate/severe canal stenosis. Tricuspid valve stenosis. Anxiety. Depression. History of PPM. Assessment/Plan Continued all current supportive medical care. Morphine and [place] for pain management. Aspirin. DVT prophylactics. Additional plan as per the hospital course. Dietary Evaluation Review Comments: Assessment: Patient with obesity and uncontrolled DM; requires weight reduction and cardiac dietary management. Intervention: Accommodate patients food preferences while maintaining therapeutic goals. Reinforce Cardiac Low Carbohydrate Diet and CCHO principles. Educated patient on using non-salt herbal seasonings to enhance flavor without increasing sodium intake. Encouraged adherence to weight-reducing strategies within cardiac diet guidelines. Plan: Continue current cardiac low-CHO diet. Monitor weight trends, blood glucose, and dietary compliance. Reassess nutrition needs and patient understanding at follow-up. Expected Outcomes/Goals: Gradual wt loss Plan discussed with: Patient IRENE SIMEON MD Mar 03, 2025 13:03
[2025-03-04] VITALS (7 sets, daily range): BP systolic 111–146; BP diastolic 60–90; PULSE 71–94; RESP 17–19; TEMP 97.9–99.4; O2SAT 94–97
[2025-03-04] MEDS ORDERED: METH4PAK PO (15:11)
[2025-03-04] MEDS ORDERED: HYDR-4798 PO (15:11)
[2025-03-04] MEDS ORDERED: NALO4SPR2 (15:11)
--- NOTE | 2025-03-04 15:13 | DVHDS2 ---
Discharge Summary Date of Admission Feb 24, 2025 at 08:04 Date of Discharge: Mar 04, 2025 Labs/Diagnostic Data: Laboratory Results Test 03/03/25 13:03 02/25/25 04:55 02/24/25 19:24 02/24/25 05:16 White Blood Count 18.3 10^3/uL (4.4-10.8) Red Blood Count 5.76 10^6/uL (4.0-5.20) Hemoglobin 14.1 g/dL (12.2-16.2) Hematocrit 42.6 % (36.0-46.0) Mean Corpuscular Volume 74.0 fL (80.0-100.0) Mean Corpuscular Hemoglobin 24.5 pg (28.0-32.0) Mean Corpuscular Hemoglobin Concent 33.1 g/dL (32.0-36.0) Red Cell Distribution Width 18.3 % (11.8-14.3) Platelet Count 295 10^3/uL (140-450) Mean Platelet Volume 8.9 fL (6.9-10.8) Neutrophils (%) (Auto) 86.7 % (37.0-80.0) Lymphocytes (%) (Auto) 7.1 % (10.0-50.0) Monocytes (%) (Auto) 6.2 % (0.0-12.0) Eosinophils (%) (Auto) 0.0 % (0.0-7.0) Basophils (%) (Auto) 0.0 % (0.0-2.0) Neutrophils # (Auto) 15.9 10 ^3/uL (1.6-8.6) Lymphocytes # (Auto) 1.3 10 ^3/uL (0.4-5.4) Monocytes # (Auto) 1.1 10 ^3/uL (0-1.3) Eosinophils # (Auto) 0 10 ^3/uL (0-0.8) Basophils # (Auto) 0 10 ^3/uL (0-0.2) Nucleated Red Blood Cells 0.1 % Sodium Level 135 mmol/L (136-145) Potassium Level 4.3 mmol/L (3.5-5.1) Chloride Level 100 mmol/L (98-107) Carbon Dioxide Level 27 mmol/L (20-31) Anion Gap 8 (5-15) Blood Urea Nitrogen 12 mg/dL (9-23) Creatinine 0.83 mg/dL (0.550-1.02) Glomerular Filtration Rate Calc 91 mL/min (>90) BUN/Creatinine Ratio 14.5 (10.0-20.0) Serum Glucose 193 mg/dL (74-106) Calcium Level 9.2 mg/dL (8.7-10.4) Total Bilirubin 0.7 mg/dL (0.2-1.0) Aspartate Amino Transferase (AST) 23 U/L (13-40) Alanine Aminotransferase (ALT) 24 U/L (7-40) Alkaline Phosphatase 72 U/L (46-116) Total Protein 6.9 g/dL (5.7-8.2) Albumin 4.3 g/dL (3.2-4.8) Hepatitis C Antibody Negative (Negative) Lactic Acid Level 1.6 mmol/L (0.4-2.0) C-Reactive Protein High Sensitivity 0.74 mg/dL (<1.0) Other Laboratory Tests 03/03/25 13:03 Brief Hx & Hospital Course: 39-year-old female with a known history of morbid obesity classIII, status post pacemaker is here for low back pain radiating to the right lower intractable low back pain with lumbar radiculopathy. Patient has a lumbar spine stenosis at L4- 5 and L5-S1 level. Spine surgery was consulted who recommended outpatient follow-up. Patient has a recent history of cervicitis being treated with p.o. 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 Initially MRA was ordered of the lumbar spine but patient has a pacemaker. Outpatient follow up with PCP and spine surgery upon discharge. Patient medication [place] will be sent to [facility] pharmacy. Condition at Discharge: Stable Final Diagnosis/Problems List 39-year-old female with a known history of morbid obesity classIII, status post pacemaker is here for low back pain radiating to the right lower extremity found to have 1. Intractable low back pain 2. Lumbar radiculopathy 3. Lumbar spine stenosis at L4-5 S1 4. Morbid obesity classIII 5. Status post pacemaker 6. Recent diagnosis of cervicitis, on antibiotics Discharge Disposition: Home with Health Services SNF Discharge Will this Physician continue t: No Discharge Instruct/Medications Diet: Cardiac 2g Na,low cholest Activity: See Comment Activity comment: No driving, no signing legal documents, no playing on machinery while on narcotics Follow Up/Referral: Outpatient follow up with the PCP in one week Outpatient follow up with Dr. Magy Leon for the follow up on cervicitis Follow up with the spine surgery DrMk Silver in one week Medications: Medication as prescribed and reconciled Scheduled Aspirin (Aspir-Low), 81 MG PO DAILY, (Reported) Cariprazine HCl (Vraylar), 6 MG PO DAILY, (Reported) Dicyclomine Hcl (Dicyclomine Hcl), 20 MG PO TIDBM, (Reported) Hydroxyzine Hcl (Hydroxyzine Hcl), 1 TAB PO DAILY, (Reported) Methylprednisolone (Medrol Dosepak), 4 MG PO UD Naloxone HCl (Narcan), 4 MG NA PACKER DRIED BEEF Quetiapine Fumerate (Quetiapine Fumarate), 200 MG PO HS, (Reported) Scheduled PRN Hydrocodone-Acetaminophen (Hydrocodone Bitartrate/AC 10-325 mg), 1 TAB PO Q6HP PRN Lactulose (Enulose), 10 GM PO DAILYP PRN for FOR CONSTIPATION, (Reported) Discharge Statement: "Patient was advised to return to the ER or call 911 if any headaches, dizziness, shortness of breath, chest pain, abdominal pain, bleeding, fevers, or worsening of medical condition. Patient was counseled about treatment plan, medications, possible side effects, patientverbalized understanding. All questions were answered to the best of my ability. This discharge took greater then 30 minutes in planning, reviewing documentation, counseling the patient, and discussing with other team members." ASSESSMENT ASSESSMENT Assessment 39-year-old female with a known history of morbid obesity classIII, status post pacemaker is here for low back pain radiating to the right lower extremity found to have 1. Intractable low back pain 2. Lumbar radiculopathy 3. Lumbar spine stenosis at L4-5 S1 4. Morbid obesity classIII 5. Status post pacemaker 6. Recent diagnosis of cervicitis, on antibiotics GIOVANNI LABOY MD Mar 04, 2025 15:13
--- NOTE | 2025-03-04 21:55 | DVHPN2 ---
Progress Note - Dictate Date Seen: Mar 04, 2025 Medical Necessity Reason Pt with a Central, PICC or Fol: No Subjective Patient was seen and evaluated in follow up. Patient has no new complaints at this time. Patient denies any cardiac symptoms. Patient is cardiac stable for discharge. vital signs Vital Sign Date Time Temp Pulse Resp B/P (MAP) Pulse Ox O2 Delivery O2 Flow Rate FiO2 03/04/25 10:19 73 17 111/76 03/04/25 08:30 98.5 97 98.5 03/03/25 20:00 Room Air* 0 21 Total Intake and Output 03/03/25 03/03/25 03/04/25 15:00 23:00 07:00 Intake Total 680 ml 1110 ml Output Total 2 ml Balance 680 ml 1108 ml medications Current Medications Medications Dose Ordered Sig/Estevan Route Start Time Stop Time Status Last Admin Dose Admin Acetaminophen/ Hydrocodone Bitart 1 tab Q4HP PRN PO 02/24/25 08:15 03/04/25 05:24 1 TAB Ondansetron HCl 4 mg Q4HP PRN IV 02/24/25 08:15 Docusate Sodium 100 mg BIDPRN PRN PO 02/24/25 08:15 Enoxaparin Sodium 40 mg DAILY SC 02/24/25 10:00 03/04/25 10:04 40 MG Acetaminophen 650 mg Q6HP PRN PO 02/24/25 08:15 Aspirin 81 mg DAILY PO 02/24/25 10:00 03/04/25 10:04 81 MG Patient Own Medication 20 mg TIDBM PO 02/24/25 10:00 03/04/25 10:04 20 MG Quetiapine Fumarate 200 mg HS PO 02/24/25 22:00 03/03/25 21:10 200 MG Methylprednisolone Sodium Succinate 40 mg BID IV 02/24/25 10:00 03/04/25 10:04 40 MG Morphine Sulfate 2 mg Q4HPRN PRN IV 02/24/25 08:45 03/04/25 10:19 2 MG Metronidazole 100 ml @ 100 mls/hr Q8HR IV 02/24/25 22:00 03/04/25 05:14 100 MLS/HR Gabapentin 300 mg TID PO 02/25/25 11:00 03/04/25 05:14 300 MG Amitriptyline HCl 10 mg HS PO 02/27/25 22:00 03/03/25 21:09 10 MG objective GENERAL: Alert and oriented x 3. No acute distress. EYES: PERRL, EOMI. Anicteric. HENT: Moist mucous membranes. LUNGS: Clear to auscultation bilaterally. CARDIOVASCULAR: Regular rate and rhythm. ABDOMEN: Soft, nontender and nondistended. EXTREMITIES: No edema. NEUROLOGIC: No focal neurological deficits. SKIN: Warm, dry. laboratory and microbiology Laboratory Tests 03/03/25 13:03 Test 03/03/25 13:03 Range/Units Serum Glucose 193 H 74-106 mg/dL Problem List Intractable pain. Radiculopathy. Schmorl's Nodes. L4-L5 & L5-S1 moderate/severe canal stenosis. Tricuspid valve stenosis. Anxiety. Depression. History of PPM. Assessment/Plan Continued all current supportive medical care. Morphine and [place] for pain management. Aspirin. DVT prophylactics. IV Solu-Medrol. Additional plan as per the hospital course. Dietary Evaluation Review Comments: Assessment: Patient with obesity and uncontrolled DM; requires weight reduction and cardiac dietary management. Intervention: Accommodate patients food preferences while maintaining therapeutic goals. Reinforce Cardiac Low Carbohydrate Diet and CCHO principles. Educated patient on using non-salt herbal seasonings to enhance flavor without increasing sodium intake. Encouraged adherence to weight-reducing strategies within cardiac diet guidelines. Plan: Continue current cardiac low-CHO diet. Monitor weight trends, blood glucose, and dietary compliance. Reassess nutrition needs and patient understanding at follow-up. Expected Outcomes/Goals: Gradual wt loss Plan discussed with: Patient IRENE SIMEON MD Mar 04, 2025 12:11
[2025-03-06] MEDS ORDERED: METH4PAK PO (13:25)
[2025-03-06] MEDS ORDERED: NALO4SPR2 (13:25)
[2025-03-06] MEDS ORDERED: HYDR-4798 PO (13:25)
== END 2025-03-04 18:48 | disposition home health service (06) | DRG 347 ==
LOC: EDBD 23:39 → ER 23:39 → OVERFLOW 02-24 08:04 → WEST WING 02-24 17:23
PROVIDERS: ADMIT Internal Medicine; ATTEND Internal Medicine
DX: M48.061 Spinal stenosis, lumbar region without neurogenic claudication (principal); E11.65 Type 2 diabetes mellitus with hyperglycemia; E66.813 Obesity, class 3; F32.A Depression, unspecified; I07.0 Rheumatic tricuspid stenosis; M48.07 Spinal stenosis, lumbosacral region; F41.9 Anxiety disorder, unspecified; M51.46 Schmorl's nodes, lumbar region; M54.16 Radiculopathy, lumbar region; Z95.0 Presence of cardiac pacemaker; Z95.2 Presence of prosthetic heart valve; Z82.49 Family history of ischemic heart disease and other diseases of the circulatory system; Z83.3 Family history of diabetes mellitus; Z68.42 Body mass index [BMI] 45.0-49.9, adult
CPT/HCPCS: 36415; 71045; 72131; 80048; 80053; 83605; 85025; 86141; 86803; 93971; 96372; 96374; G0378; J1885; J3490